=== PATIENT | male | born 1960 | race Caucasian/White ===

== ENCOUNTER 2017-10-10 08:45 | Inpatient (IN) | payer BC ==
[2017-10-10 09:32] VITALS: BMI 26.6
--- NOTE | 2017-10-12 09:54 | HP ---
HISTORY OF PRESENT ILLNESS: The patient is a 56-year-old white male who has had progressive problems with his right knee. He underwent arthroscopic meniscectomy 18 years ago with initial good results. For the past several years he has noticed progressive pain which has persisted despite rest, restri ction of activities, lifestyle adjustments, ibuprofen, Synvisc injections and previous cortisone inje ctions. The pain is now interfering with day-to-day activities including walking, getting dressed, s leeping and working. PAST MEDICAL HISTORY: Please see the old chart. The patient has a history of hepatitis C and has hicks d treatment with resolution of the problem, but has had pancytopenia chronically related to the treat ment and also a component of cirrhosis and hypersplenism. This has been stable without recent change . He also has a history of hypertension. CURRENT MEDICATIONS: Wellbutrin and lisinopril, hydrocodone for pain. PAST SURGICAL HISTORY: He has had a previous low back surgery, previous surgery for nonunion of a le ft patellar fracture. SOCIAL HISTORY: He smokes 10 cigarettes per day. 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 ALLERGIES: He has no allergies. FAMILY HISTORY/SOCIAL HISTORY/REVIEW OF SYSTEMS: Otherwise unremarkable. PHYSICAL EXAMINATION: GENERAL: Reveals a healthy appearing male. HEENT: Unremarkable. NECK: Supple. CHEST: Clear. HEART: Regular rate and rhythm. ABDOMEN: Soft, nontender. RECTAL/GENITAL: Deferred. EXTREMITIES: Pertinent findings related to the right knee. There is moderate effusion. There is mo derate valgus deformity. There is tenderness and crepitus over the lateral joint line. There are he aled arthroscopy puncture sites. Range of motion is 5-125 degrees. There is no instability. Pulses are 1+. There are mild venous stasis changes bilaterally. There is a right antalgic gait. Neurova scular exam is intact. LABORATORY AND X-RAY FINDINGS: X-rays of the right knee reveal bone on bone collapse laterally with progression from previous x-rays. IMPRESSION: 1. Progressive post-traumatic degenerative arthritis, right knee. 2. History of hepatitis C. 3. History of pancytopenia. 4. History of hypertension. PLAN: Right total knee replacement. The nature of the surgery, length of recovery, and potential co mplications such as infection, loss of motion, incomplete relief, delayed wound healing, neurovascula r injury, thromboembolic phenomena, possible transfusion, and need for revision have been discussed i n detail.
[2017-10-16] MEDS ORDERED: CEFAZOLIN/Water 2 GM/20 ML SYRINGE ONE (06:10)
[2017-10-16] MEDS ORDERED: Vancomycin HCl 1.5 GM in Sodium Chloride 0.9% 250 ML 300 ML IVPB SCH ×2 (06:30→18:00)
[2017-10-16] MEDS ORDERED: Fentanyl 100 MCG/2 ML VIAL ONE ×2 (06:36→09:11)
[2017-10-16] MEDS ORDERED: Midazolam HCl 2 mg/2 ml Vial ONE (06:36)
[2017-10-16] MEDS ORDERED: Bupivacaine/Epinephrine 0.25% 30 ML VIAL ONE (06:39)
[2017-10-16 06:49] LABS: Hemoglobin 11.2 g/dL (14.0-18.0); Mean Corpuscular HGB CONC 33.4 g/dL (32.0-36.0); Mean Corpuscular Hemoglobin 28.6 pg (27.0-31.0); Mean Corpuscular Volume 85.7 fl (80.0-94.0); Mean Platelet Volume 8.7 fL (7.4-10.4); Platelet Count 44 thou/uL (130-400); RBC Distribution Width 12.8 % (11.5-14.5); Red Blood Cell (RBC) Count 3.92 mill/uL (4.70-6.10)
[2017-10-16] MEDS ORDERED: Zolpidem Tartrate 5 MG TAB PO PRN ×2 (07:16→09:21)
[2017-10-16] MEDS ORDERED: Ondansetron HCl/PF 4 MG/2 ML Vial IVP PRN ×2 (07:16→09:21)
[2017-10-16] MEDS ORDERED: HYDROcodone/Acetaminophen 5/325 mg Tablet PO PRN (07:16)
[2017-10-16] MEDS ORDERED: Promethazine HCl 25 MG/ML VIAL IM PRN (07:16)
[2017-10-16] MEDS ORDERED: traMADol HCl 50 MG TAB PO PRN ×3 (07:16→09:21)
[2017-10-16] MEDS ORDERED: Thrombin 5000 UNITS/5 ML VIAL ONE (07:37)
[2017-10-16] MEDS ORDERED: Ondansetron HCl/PF 4 MG/2 ML Vial ONE ×2 (08:28→12:28)
[2017-10-16] MEDS ORDERED: Tranexamic Acid 1,000 MG in Sodium Chloride 0.9% 100 ML IVPB SCH ×2 (09:00→09:21)
[2017-10-16] MEDS ORDERED: Promethazine HCl 25 MG/ML VIAL SLOW IVP PRN (09:21)
[2017-10-16] MEDS ORDERED: Fentanyl 100 MCG/2 ML VIAL SLOW IVP PRN ×2 (09:21)
[2017-10-16] MEDS ORDERED: Acetaminophen 325 MG TAB PO PRN (09:21)
[2017-10-16] MEDS ORDERED: diphenhydrAMINE 25 MG CAP PO PRN (09:21)
[2017-10-16] MEDS ORDERED: HYDROcodone/Acetaminophen 10/325 mg Tablet PO PRN ×2 (09:21)
--- NOTE | 2017-10-16 09:28 | RAD ---
TWO VIEWS RIGHT KNEE: Date: 10-16-17 History: Post-operative total knee replacement. Comparison: None available. FINDINGS: There are post-surgical changes related to right total knee replacement. No hardware complication is seen. There is no fracture or dislocation. Subcutaneous emphysema and edema are seen about the right knee related to recent surgery. IMPRESSION: Post-surgical changes related to recent right total knee replacement. POS: [facility]
[2017-10-16] MEDS ORDERED: Hydrochlorothiazide 25 MG TAB PO SCH (10:00)
[2017-10-16] MEDS ORDERED: Lisinopril 20 MG TAB PO SCH (10:00)
--- NOTE | 2017-10-16 10:29 | OP ---
DATE OF PROCEDURE: 10/16/2017 PREOPERATIVE DIAGNOSES: End-stage tricompartmental degenerative osteoarthritis with degenerative gen u valgum, right knee. POSTOPERATIVE DIAGNOSES: End-stage tricompartmental degenerative osteoarthritis with degenerative ge nu valgum, right knee. OPERATIVE PROCEDURE: Cemented cruciate-sparing computer-assisted navigated right total knee arthropl juan. SURGEON: Edilson Martinez M.D. AUTOMATIC PAD MAKING MACHINE OPERATOR: Chicho Garsia PA-C. ANESTHESIA: General via laryngeal mask airway augmented with indwelling femoral block with a single shot sciatic block and local infiltration of Marcaine. COMPONENTS USED: [employer] Triathlon cemented cruciate-sparing primary size 5 femoral comp onent, cemented cruciate-sparing size 6 universal tibial baseplate, 11 mm polyethylene fixed bearing insert, A35 patellar button. TOURNIQUET TIME: 68 minutes at 300 mmHg. ESTIMATED BLOOD LOSS: Less than 100. FINDINGS: End-stage severe degenerative tricompartmental disease, bone on bone arthrosis, periarticu lar osteophyte formation, large serous effusion, hypertrophic synovium. DRAINS: None. SPECIMENS: None. COMPLICATIONS: None. COUNTS: Correct. INDICATIONS FOR SURGERY: Andrew is a 56-year-old white male who has had progressive right knee pain an d has gotten worse for the last 5-7 years. He has failed conservative management and elected to proc eed with total knee arthroplasty for treatment of his pain. PROCEDURE IN DETAIL: After informed consent was obtained in the preoperative holding area. The jany ent was taken to the operative suite where general anesthesia was induced. Once adequate level of ge neral anesthesia was obtained, the patient was positioned and a well-padded tourniquet was placed juhi und the right proximal thigh. The right lower extremity was then prepped and draped in the usual raul rile fashion. Prior to exsanguination, a time out was called and all members of the surgical team ag marisol upon site, surgeon, and patient. The extremity was then exsanguinated and the tourniquet was ra ised. A midline longitudinal incision was then made directly over the patella extending two fingerbr eadths above the superior pole of the patella and two fingerbreadths inferior to the inferior patella r pole of the patella. Deeper subcutaneous layers were dissected sharply and local bleeding was cont rolled with Bovie electrocautery. A quad tendon longitudinal split was then made sharply and a media n parapatellar arthrotomy was carried out both sharp and with Bovie electrocautery, carried down to o ne fingerbreadth medial to the tibial tubercle. The knee was then placed into flexion and the patell a was everted nicely, and a copious fat pad ectomy was performed allowing for greater exposure of the tibia. The computer-assisted distal femoral fiducial was then placed and pinned firmly, and the dis alma femoral cutting guide was pinned firmly into place. The oscillating saw was then used to remove the appropriate amount of bone. The 4-in-1 cutting block was then placed on the distal femur and the oscillating saw was used to remove the appropriate amount of bone off of the anterior, posterior, an d chamfer cuts. After completion of bone cuts, the anterior cruciate ligament was resected sharply a nd the posterior cruciate ligament retractor was placed and the tibia was subluxed for better exposur e. Partial meniscectomies were carried out, and the tibial computer-assisted fiducial was pinned, an d the cutting guide was placed. Oscillating saw was then used to remove the bone with Hohmann retrac tors used to take care and protect the collateral ligaments. After the tibial resection was performe d, a laminar poultry dressing worker was placed in between the freshened bone cuts. The knee placed at 90 degrees a nd further bilateral meniscectomies were carried out, and the curved osteotome and curettage was used to remove any excess bone spurs in the posterior compartment. The trial femoral component, tibial b aseplate were placed with the appropriate polyethylene trial insert with an appropriate polyethylene spacer and patellar button. The knee was taken through full range of motion with flexion and extensi on from 0-90 degrees and patellar broach squarely in the trochlea without any squinting or subluxatio n noted. The knee was also stable to varus and valgus stressing at 0, 15, 45, and 90 degrees of flex ion. The drawer was negative. All trial components were then removed and the keel punch was used to provide the appropriate defect in the tibia with a mallet. The freshened bone cuts were copiously ir rigated with pulsatile lavage of about 1-1/2 liters to remove all excess debris. The freshened bone cuts were then dried and with suction and lap sponge. The knee was placed in flexion and retractors were placed to provide access to all bone cuts. Tobramycin impregnated methyl methacrylate cement wa s then placed on the freshened bone cuts and implants which were malleted firmly into place. Curetta ge and [place] elevators were used to remove any excess bone cement. The knee was placed into full ext ension and the patellar button was placed under compression, and the cement was allowed to cure. Onc e completed, the components were again taken through full range of motion and copious irrigation of t he knee was carried out with another liter of normal saline. All components were inspected fully wit h full range of motion and varus and valgus stressing. There was no laxity noted and full extension w as observed clinically. Primary closure was accomplished with #2 interrupted Vicryl stitch of the ar throtomy defect. This was oversewn with a #2 running Quill barbed stitch. The subcutaneous layer wa s then closed with a running 0 barbed Monocryl stitch and skin closure accomplished with a running viramontes bcuticular 3-0 Monocryl barbed Quill stitch and augmented with cement on the skin. Tourniquet was lo wered. Good spontaneous return of distal pulses was noted clinically and a sterile dressing was appl ied to the incision. The procedure was terminated without any complications. The patient was awaken ed in the operative suite and taken to the recovery room in stable condition.
[2017-10-16] MEDS ORDERED: Ropivacaine 0.2% HCl/PF (40 MG/20 ML VIAL) ONE (11:43)
[2017-10-16] MEDS ORDERED: Ropivacaine 0.5% HCl/PF (150 MG/30 ML VIAL) ONE (11:43)
[2017-10-16] MEDS: Lisinopril 20 MG TAB PO SCH (11:50)
[2017-10-16] MEDS: HYDROcodone/Acetaminophen 5/325 mg Tablet PO PRN ×3 (11:51→21:50)
[2017-10-16] MEDS: Sodium Chloride 0.9% 1,000 ML IV SCH ×2 (12:00→20:07)
[2017-10-16] MEDS ORDERED: Dexamethasone 20 MG/5 ML VIAL ONE (12:28)
[2017-10-16] MEDS ORDERED: PROPOFOL 200 MG/20 ML VIAL ONE (12:28)
[2017-10-16] MEDS: CEFAZOLIN/Water 2 GM/20 ML SYRINGE SLOW IVP SCH ×2 (13:46→21:05)
[2017-10-16] MEDS ORDERED: hydrALAZINE 20 MG/ML VIAL SLOW IVP PRN (17:50)
[2017-10-16] MEDS: Bupivacaine 0.5% 50 ML in Sodium Chloride 0.9% 50 ML NERVE BLCK SCH (21:51)
[2017-10-16] MEDS: Fentanyl 100 MCG/2 ML VIAL IV PRN (23:39)
--- NOTE | 2017-10-17 01:26 | CON ---
DATE OF CONSULTATION: 10/16/2017 PRIMARY CARE PHYSICIAN: Gloria Bardales DO ATTENDING PHYSICIAN: Edilson Martinez MD REASON FOR CONSULT: Aid in medical management. HISTORY OF PRESENT ILLNESS: Mr. Davidson is a pleasant 56-year-old gentleman who has had progressive naz n in his right knee. He has failed conservative measures and was admitted for an elective right tota l knee replacement. Currently, the patient is postop, he is experiencing some significant pain which limits the history taking. He states other than the pain in his knee, he has no other significant c omplaints. He has had blood pressure for many years and he says it typically runs fairly well, howev er, it is usually a little bit on the high side. He was recently taken off atenolol due to some type of side effect. He also has a history of hepatitis C and cirrhosis. He said he did complete a cour se of treatment for hepatitis C and says that he was cured of this and this was back in 2014. He oth erwise denies any chest pain or shortness of breath, no PND, no orthopnea, no nausea, no vomiting, et c. PAST MEDICAL HISTORY: Significant for hepatitis C, cirrhosis, hypersplenism, and hypertension. PAST SURGICAL HISTORY: He has had a patellectomy in the left knee and umbilical hernia surgery and o rbital fracture reduction. ALLERGIES: No known drug allergies. SOCIAL HISTORY: He is . He has one adopted son. He smokes about 10 cigarettes a day and he rarely drinks. FAMILY HISTORY: Significant for father had lung cancer. CURRENT MEDICATIONS: Ibuprofen 600 mg t.i.d., [place] 5/325 q.6 hours as needed, lisinopril 40 mg ivett y, and hydrochlorothiazide 25 mg daily. PHYSICAL EXAMINATION: GENERAL: He is alert and oriented. He is in some distress due to pain. VITAL SIGNS: Blood pressure was 149/91, heart rate 68, respiratory rate is 16, temperature is 97.4. HEENT: His pupils are equal, round, and reactive. Extraocular muscles are intact. Sclerae are anic teric. Throat, no erythema, no exudates. NECK: No adenopathy, no bruits. LUNGS: Clear to auscultation. There was no wheezing or rales. CARDIOVASCULAR: He had a normal S1, S2. I do not appreciate an S3 or S4. No murmurs, clicks, or ru bs. ABDOMEN: Soft, nontender, nondistended. Positive for bowel sounds. No rebound or guarding. EXTREMITIES: There is no edema. NEUROLOGIC: He is moving all extremities. It is grossly nonfocal. LABORATORY DATA: White blood cell count is 2.0, hemoglobin 11.2, hematocrit is 33.6, platelet count was 44,000. ASSESSMENT AND PLAN: This is a pleasant 56-year-old gentleman who is being admitted for an elective right total knee replacement. With regard to hypertension, we agree with restarting hydrochlorothiaz karely as well as the lisinopril and we will add hydralazine as needed for additional blood pressure con trol. History of hepatitis C and cirrhosis. The hepatitis C has been successfully treated. However , he still has some evidence of hypersplenism. However, it does appear to be actually improved from previous admissions in reviewing his lab work from as far back as 2011. His white blood cell count i s actually the highest, it has been accepted for one time in 2015 and his platelet count of 44,000 is actually better than what it has been in the past. We will monitor this carefully during his hospit al stay and watch for any signs of difficulty with hemostasis. However, with a platelet count above 20,000, he should be able to maintain adequate hemostasis. Otherwise, we will follow along with you. Thank you for allowing us to participate in the care of this very nice gentleman.
[2017-10-17] MEDS: HYDROcodone/Acetaminophen 5/325 mg Tablet PO PRN ×2 (02:09→06:11)
[2017-10-17] MEDS: Fentanyl 100 MCG/2 ML VIAL IV PRN ×4 (03:53→21:05)
[2017-10-17] MEDS: Sodium Chloride 0.9% 1,000 ML IV SCH ×2 (04:30→18:51)
[2017-10-17 06:01] LABS: Hemoglobin 12.2 g/dL (14.0-18.0); Mean Corpuscular HGB CONC 34.6 g/dL (32.0-36.0); Mean Corpuscular Hemoglobin 29.9 pg (27.0-31.0); Mean Corpuscular Volume 86.5 fl (80.0-94.0); Mean Platelet Volume 9.6 fL (7.4-10.4); Platelet Count 55 thou/uL (130-400); RBC Distribution Width 12.9 % (11.5-14.5); Red Blood Cell (RBC) Count 4.08 mill/uL (4.70-6.10); White Blood Cell (WBC) Count 6.7 thou/uL (4.8-10.8)
[2017-10-17] MEDS: Lisinopril 20 MG TAB PO SCH (08:52)
[2017-10-17] MEDS: Multivitamin W/ Minerals 1 TAB PO SCH (08:52)
[2017-10-17] MEDS: Senokot S 8.6-50 MG TAB PO SCH ×2 (08:52→21:06)
[2017-10-17] MEDS: Hydrochlorothiazide 25 MG TAB PO SCH (08:52)
[2017-10-17] MEDS: Ferrous Gluconate 324 MG TAB PO SCH ×2 (08:53→18:52)
[2017-10-17] MEDS ORDERED: Fentanyl 100 MCG/2 ML VIAL SLOW IVP SCH (10:15)
[2017-10-17] MEDS ORDERED: HYDROcodone/Acetaminophen 10/325 mg Tablet PO PRN (10:16)
[2017-10-17] MEDS: HYDROcodone/Acetaminophen 10/325 mg Tablet PO PRN ×4 (10:57→23:20)
[2017-10-17] MEDS: Bupivacaine 0.5% 50 ML in Sodium Chloride 0.9% 50 ML NERVE BLCK SCH ×2 (12:45→23:04)
--- NOTE | 2017-10-17 14:06 | PDOC.PN ---
- Subjective Encounter Start Date: 10/17/17 Encounter Start Time: 12:30 Mr. Davidson was seen today in follow-up of HTN and Post knee replacement. He says the pain in his knee has just now been controlled. He says he was in pain all night and this morning. - Objective MAR Reviewed: Yes Vital Signs & Weight: Vital Signs (12 hours) Temp Pulse Pulse Pulse Resp BP BP 10/17/17 11:40 97.8 F 70 16 10/17/17 08:52 148/90 H 10/17/17 08:30 76 80 169/110 H 10/17/17 08:00 98.6 F 79 16 10/17/17 07:55 98.6 F 79 16 10/17/17 07:11 98.1 F 72 18 10/17/17 03:54 71 200/102 H 10/17/17 03:15 98.1 F 74 16 BP BP Pulse Ox 10/17/17 11:40 161/101 H 97 10/17/17 08:52 10/17/17 08:30 148/95 H 10/17/17 08:00 99 10/17/17 07:55 169/110 H 99 10/17/17 07:11 166/96 H 96 10/17/17 03:54 10/17/17 03:15 200/102 H 96 Weight Admit Weight 180 lb Weight 180 lb I&O: 10/16/17 10/17/17 10/18/17 06:59 06:59 06:59 Intake Total 4578.5 1 Output Total 2800 Balance 1778.5 1 Result Diagrams: 10/17/17 03:12 Phys Exam - Physical Examination HEENT: PERRLA Respiratory: no wheezing, no rales, no rhonchi, clear to auscultation bilateral Cardiovascular: RRR, no significant murmur, no rub Gastrointestinal: soft, non-tender, no distention, positive bowel sounds Musculoskeletal: no edema Dx/Plan (1) Hypertension Code(s): I10 - ESSENTIAL (PRIMARY) HYPERTENSION Status: Chronic (2) Cirrhosis of liver Code(s): K74.60 - UNSPECIFIED CIRRHOSIS OF LIVER Status: Chronic (3) Hypersplenism Code(s): D73.1 - HYPERSPLENISM Status: Chronic (4) Status post total right knee replacement Code(s): Z96.651 - PRESENCE OF RIGHT ARTIFICIAL KNEE JOINT Status: Acute - Plan * HTN- blood pressure is elevated, but I suspect this is due to pain- will continue with his home medications, and PRN medications * Hyperplenism- his platelet count is better today, will continue to monitor * Continue symptom rlief, and PTOT .
[2017-10-18] MEDS: Fentanyl 100 MCG/2 ML VIAL IV PRN (02:34)
[2017-10-18] MEDS: Sodium Chloride 0.9% 1,000 ML IV SCH (04:06)
[2017-10-18] MEDS: HYDROcodone/Acetaminophen 10/325 mg Tablet PO PRN ×2 (04:46→08:59)
[2017-10-18 08:25] VITALS: BP 162/104; TEMP 98.6
[2017-10-18] MEDS: Ferrous Gluconate 324 MG TAB PO SCH (08:57)
[2017-10-18] MEDS: Senokot S 8.6-50 MG TAB PO SCH (08:57)
[2017-10-18] MEDS: Hydrochlorothiazide 25 MG TAB PO SCH (08:57)
[2017-10-18] MEDS: Lisinopril 20 MG TAB PO SCH (08:57)
[2017-10-18] MEDS: Multivitamin W/ Minerals 1 TAB PO SCH (08:57)
--- NOTE | 2017-10-18 15:02 | DIS ---
DATE OF ADMISSION: 10/16/2017 DATE OF DISCHARGE: 10/18/2017 PRIMARY CARE PROVIDER: Gloria Bardales D.O. ADMITTING PHYSICIAN: Edilson Martinez M.D. DISCHARGE DIAGNOSES: Status post cemented cruciate-sparing computer-assisted navigated right total k nee arthroplasty on 10/16/2017, hepatitis C, cirrhosis, hypersplenism, and hypertension. ALLERGIES: None. DISCHARGE MEDICATIONS: Lisinopril 40 mg a day, [place] 10/325 one to two every 6 hours as needed for p ain, and hydrochlorothiazide 25 mg a day. CODE STATUS: FULL. HOSPITAL COURSE: The patient admitted to the hospital by Dr. Edilson Martinez, underwent surgery. Padmini tinajero consulted for medical management. The patient did well during his hospital stay and was discharge d on 10/18/2017. FOLLOWUP: Per Dr. Martinez.
== END 2017-10-18 12:36 | disposition home or self-care (01) | DRG 470 ==
LOC: SJJU 10-16 05:44
PROVIDERS: ADMIT Orthopaedic Surgery; ATTEND Orthopaedic Surgery
PROC: 0SRC0J9 Replacement of Right Knee Joint with Synthetic Substitute, Cemented, Open Approach (ICD-10-PCS; principal; 2017-10-16)
DX: M17.31 Unilateral post-traumatic osteoarthritis, right knee (principal); I10 Essential (primary) hypertension; Z79.899 Other long term (current) drug therapy; Z79.891 Long term (current) use of opiate analgesic; F17.210 Nicotine dependence, cigarettes, uncomplicated; K74.60 Unspecified cirrhosis of liver
CPT/HCPCS: 36415; 85027; A4216; C1713; C1776; G8978-GP-CM; G8979-GP-CJ; J0360; J1100; J2250; J2405; J2704; J2795; J3010; J3370; J3490; J7050

== ENCOUNTER 2017-10-10 09:26 | Outpatient (CLI) | payer BC ==
[2017-10-10 14:13] LABS: Bilirubin Small (Negative); Blood, Urine Negative (Negative); Clarity CLEAR (Clear); Glucose, Urine (Dipstick) Negative (Negative); Leukocyte Trace (Negative); Nitrite Negative (Negative); Protein, Urine (Dipstick) Negative (Neg-Trace); Specific Gravity, Urine 1.034 (1.002-1.036)
[2017-10-10 14:16] LABS: INR-International Normal Ratio 1.2; Prothrombin Time 15.4 SEC (12.0-14.7)
[2017-10-10 14:19] LABS: Bacteria/HPF None Seen HPF (None Seen); Hyaline Casts/LPF 7-10 HYALINE CAST LPF (0-3 Hyaline); Pathc Cast-AUWi Flag 0.58 (0-2.49); Squamous Epithelial 0-3 HPF (0-3)
[2017-10-10 14:30] LABS: Anion Gap 12 mmol/L (10-20); BUN (Urea Nitrogen) 21 mg/dL (8.4-25.7); Calc. Creatinine Clearance 0 mL/min (70-130); Calcium 9.2 mg/dL (7.8-10.44); Carbon Dioxide 27 mmol/L (22-29); Chloride 107 mmol/L (98-107); Estimated GFR-MDRD Greater than 90; Glucose 74 mg/dL (70-105); Potassium 3.5 mmol/L (3.5-5.1); Sodium 142 mmol/L (136-145)
[2017-10-10 15:00] LABS: #Lymphocytes 0.4 thou/uL (1.20-3.40); #Monocytes 0.1 thou/uL (0.11-0.59); #Neutrophils 1.3 thou/uL (1.40-6.50); %Basophils 0.8 % (0.0-1.0); %Eosinophils 2.3 % (0.0-10.0); %Lymphocytes 22.3 % (21.0-51.0); %Monocytes 5.7 % (0.0-10.0); %Neutrophils 68.9 % (42.0-75.0); Mean Corpuscular HGB CONC 32.9 g/dL (32.0-36.0); Mean Corpuscular Hemoglobin 28.8 pg (27.0-31.0); Mean Corpuscular Volume 87.7 fl (80.0-94.0); Mean Platelet Volume 9.4 fL (7.4-10.4); PLT Morphology Comment Appears Decreased; Platelet Count 49 thou/uL (130-400); Red Blood Cell (RBC) Count 4.16 mill/uL (4.70-6.10); White Blood Cell (WBC) Count 1.8 thou/uL (4.8-10.8)
--- NOTE | 2017-10-10 16:42 | EKG ---
Test Reason : Blood Pressure : / mmHG Vent. Rate : 073 BPM Atrial Rate : 073 BPM P-R Int : 152 ms QRS Dur : 098 ms QT Int : 420 ms P-R-T Axes : 009 -12 016 degrees QTc Int : 462 ms Normal sinus rhythm Normal ECG When compared with ECG of 15-MAY-2015 14:22, Abberant conduction is no longer Present Confirmed by DR. Eusebia ANDERSON ([id number]) on 10/10/2017 4:41:33 PM Referred By: ROCHELLE Confirmed By:DR. Eusebia ANDERSON
== END 2017-10-10 09:27 | disposition home or self-care (01) ==
LOC: LABBT 09:26
PROVIDERS: ATTEND Orthopaedic Surgery
DX: Z01.818 Encounter for other preprocedural examination (principal); M17.31 Unilateral post-traumatic osteoarthritis, right knee
CPT/HCPCS: 80048; 81001; 85025; 85610; 87081; 93005; 93010

== ENCOUNTER 2017-10-13 16:36 | Outpatient (CLI) | payer BC | END 2017-10-13 16:37 | disposition home or self-care (01) | LOC: LABBT 16:36 | PROVIDERS: ATTEND Orthopaedic Surgery | DX: Z01.812 Encounter for preprocedural laboratory examination (principal); M17.31 Unilateral post-traumatic osteoarthritis, right knee | CPT/HCPCS: 86850; 86870; 86900; 86901; 86922 ==

== ENCOUNTER 2017-12-29 12:36 | Emergency (ER) | payer BC ==
--- NOTE | 2017-12-29 13:32 | ULT ---
RIGHT LOWER EXTREMITY VENOUS DOPPLER: History: Right leg pain. Comparison: None. Technique: Real-time grayscale, color doppler, and spectral analysis of the right lower extremity sergio ous system was performed. The common femoral, femoral, proximal portions of the greater saphenous and deep femoral veins as well as the popliteal and posterior tibial veins were interrogated. FINDINGS: Normal flow, augmentation, and compression. No deep venous thrombosis. Low grade soft tissue edema. IMPRESSION: No evidence of deep venous thrombosis. POS: [facility]
== END 2017-12-29 14:26 | disposition home or self-care (01) ==
LOC: SCSER 12:36
DX: T84.89XA Other specified complication of internal orthopedic prosthetic devices, implants and grafts, initial encounter (principal); M79.89 Other specified soft tissue disorders; I10 Essential (primary) hypertension; F41.9 Anxiety disorder, unspecified; F17.210 Nicotine dependence, cigarettes, uncomplicated

== ENCOUNTER 2018-09-10 08:14 | Outpatient (CLI) | payer BC ==
--- NOTE | 2018-09-10 10:01 | HP ---
HISTORY OF PRESENT ILLNESS: Mr. Andrew Davidson is a very pleasant 57-year-old gentleman, who presents to the [facility] for evaluation of venous ulcerations of the right and left lower legs. The patient has one ulceration over the right medial lower leg and one ulceration over the left medial lower leg. The patient states that the ulcerations have been present since the beginning of July of this year. He states that he treated the ulcerations with a silver-based ointment, which he purchased from [employer]. He states that he used Band-Aids for dressing the wounds in conjunction with the silver-based ointment, because of adherence of gauze to the wound bed. He states that the wounds have improved in their appearance since he was prescribed Bactrim by Dr. Foreman. The patient was referred to the Wound Center by Dr. Foreman on 08/23/2018. PAST MEDICAL HISTORY: 1. Hypertension. 2. History of hepatitis C. 3. Cirrhosis. 4. Arthritis. PAST SURGICAL HISTORY: 1. Right knee arthroscopy. 2. Umbilical hernia repair. 3. Lumbar laminectomy. 4. Left orbital fracture with repair. 5. Partial patellectomy of left knee with quadriceps repair. 6. Right total knee arthroplasty. MEDICATIONS: 1. Lisinopril. 2. Hydrochlorothiazide. 3. Xanax. 4. Ibuprofen. 5. Zyrtec. ALLERGIES: NO KNOWN DIAGNOSED ALLERGIES. SOCIAL HISTORY: Social history significant for tobacco use of up to one pack of cigarettes per day for 22 years. The patient states that he stopped smoking at the beginning of July of this year. The patient admits to heavy consumption of alcohol in the past. He states that for the past 7 to 8 years, however, he has only consumed 2 drinks per month. He states that he has consumed alcohol for a total of 40 years. FAMILY HISTORY: Negative for diabetes mellitus or coronary artery disease. PHYSICAL EXAMINATION: VITAL SIGNS: Temperature 97.5, pulse 87, respirations 18, blood pressure 146/81. GENERAL: A 57-year-old gentleman, lying on table in examination room, in no acute distress. HEENT: Normocephalic, atraumatic. NECK: No nuchal rigidity. CHEST: Clear to auscultation. CV: Regular rate and rhythm. ABDOMEN: Soft. EXTREMITIES: An ulceration is present over the right medial lower leg, which measures approximately 1.4 x 1.8 cm. An ulceration is present over the left medial lower leg, which measures approximately 0.4 x 0.3 cm. Granulation tissue is present within the margins of each wound. Necrotic and nonviable tissue present within the margins of the larger ulceration was debrided with an excisional full-thickness debridement with the use of a curette. No purulent drainage is associated with either wound. No erythema of the skin surrounding either wound is present. No maceration of the skin of the periwound of either wound is noted. Dorsalis pedis pulse and posterior tibial pulse are palpable on the right and on the left. No significant edema of the right or left lower extremities present on exam today. Discoloration of the skin of the right and left lower legs is present secondary to hemosiderin deposition. NEUROLOGIC: Grossly nonfocal. ASSESSMENT AND PLAN: 1. Chronic venous hypertension with ulcers, Medihoney, foam, followed by the 3M Coban 2 Layer Compression System will be applied to the ulceration of the right medial lower leg. Medihoney followed by Allevyn will be applied to the ulceration of the left medial lower leg. The patient is to perform his own dressing changes for the ulceration of the left lower leg. The patient is to leave the dressings applied in clinic today for the right lower leg ulceration intact until his followup visit in 1 week. No antibiotics will be prescribed today based upon the appearance of the wounds. The patient agrees to return to clinic in 1 week. 2. Hypertension. 3. History of hepatitis C. 4. Cirrhosis. 5. Arthritis. Job ID: [id number]
[2018-09-10] MEDS ORDERED: Sodium Chloride 0.9% 15 ML NEB ONE (18:00)
[2018-09-10] MEDS ORDERED: Lidocaine 2% 11 ML SYR ONE (18:00)
== END 2018-09-10 08:15 | disposition home or self-care (01) ==
LOC: WCC 08:14
PROVIDERS: ATTEND Family Medicine
DX: I87.313 Chronic venous hypertension (idiopathic) with ulcer of bilateral lower extremity (principal); L97.929 Non-pressure chronic ulcer of unspecified part of left lower leg with unspecified severity; L97.919 Non-pressure chronic ulcer of unspecified part of right lower leg with unspecified severity; M19.90 Unspecified osteoarthritis, unspecified site; K74.60 Unspecified cirrhosis of liver; Z86.19 Personal history of other infectious and parasitic diseases
CPT/HCPCS: A4218

== ENCOUNTER 2018-09-17 09:11 | Outpatient (CLI) | payer BC ==
--- NOTE | 2018-09-17 10:25 | PRG ---
DATE OF SERVICE: 09/17/2018 HISTORY OF PRESENT ILLNESS: Mr. Andrew Davidson is a very pleasant 57-year-old gentleman, who presents to the Wound Center for evaluation of venous ulcerations of the right and left lower legs. The patient has one ulceration over the right medial lower leg and one ulceration over the left medial lower leg. The patient previously stated that the ulcerations had been present since the beginning of July of this year. He stated that he treated the ulcerations with the silver based ointment, which he purchased from [employer]. He stated that he used Band-Aids for dressing the wounds in conjunction with the silver-based ointment, because of adherence of gauze to the wound bed. He stated that the wounds improved in their appearance after he was prescribed Bactrim by Dr. Foreman. The patient was referred to the Wound Center by Dr. Foreman on 08/23/2018. After being seen in the Wound Center, the ulceration of the right medial lower leg was dressed with Medihoney, foam, and 3M Coban 2 Layer Compression System. PHYSICAL EXAMINATION: VITAL SIGNS: Temperature 97.5, pulse 47, respirations 16, blood pressure 166/80. EXTREMITIES: An ulceration is present over the right medial lower leg, which measures approximately 1.8 x 1.4 cm. The dimensions of the wound at the time of the patient's last visit were also approximately 1.8 x 1.4 cm. Granulation tissue is present within the margins of the wound. Necrotic and nonviable tissue present within the wound margins were debrided with an excisional full-thickness debridement with the use of a curette. No purulent drainage is associated with the wound. No erythema of the skin surrounding the wound is present. No maceration of the skin of the periwound is noted. No significant edema of the right foot or lower leg is present on exam today. An ulceration of the left medial lower leg is present, which measures approximately 0.4 x 0.7 cm. No purulent drainage is associated with the wound. No erythema of the skin surrounding the wound is present. No maceration of the skin of the periwound is noted. No significant edema of the left foot or lower leg is present on today's exam. Discoloration of the skin of the right and left lower legs is present secondary to hemosiderin deposition. ASSESSMENT AND PLAN: 1. Chronic venous hypertension with ulcers. Medihoney, 4x4s, [place], and the 3M Coban 2 Layer Compression System will be applied to the ulceration of the right lower leg. Medihoney followed by Keith will be applied to the ulceration of the left medial lower leg. The patient is to perform his own dressing changes for the ulceration of the left lower leg. He is also to utilize a compression garment in conjunction with the dressing changes. The patient is to leave the dressings applied in clinic today for the right lower leg ulceration intact until his followup visit in 1 week. 2. Hypertension. 3. History of hepatitis C. 4. Cirrhosis. 5. Arthritis. Job ID: [id number]
[2018-09-17] MEDS ORDERED: Lidocaine 2% 11 ML SYR ONE (18:00)
[2018-09-17] MEDS ORDERED: Sodium Chloride 0.9% 15 ML NEB ONE (18:00)
== END 2018-09-17 09:12 | disposition home or self-care (01) ==
LOC: WCC 09:11
PROVIDERS: ATTEND Family Medicine
DX: I87.313 Chronic venous hypertension (idiopathic) with ulcer of bilateral lower extremity (principal); L97.929 Non-pressure chronic ulcer of unspecified part of left lower leg with unspecified severity; L97.919 Non-pressure chronic ulcer of unspecified part of right lower leg with unspecified severity; I10 Essential (primary) hypertension; K74.60 Unspecified cirrhosis of liver; M19.90 Unspecified osteoarthritis, unspecified site; Z86.19 Personal history of other infectious and parasitic diseases
CPT/HCPCS: 11042; A4218

== ENCOUNTER 2018-09-24 09:23 | Outpatient (CLI) | payer BC ==
--- NOTE | 2018-09-24 10:29 | PRG ---
DATE OF SERVICE: 09/24/2018 HISTORY: Mr. Andrew Davidson is a very pleasant 57-year-old gentleman, who presents to the [facility]ound Center for evaluation of venous ulcerations of the right and left lower legs. The patient has 1 ulceration over the right medial lower leg and 1 ulceration over the left medial lower leg. Previously, the patient stated that the ulcerations have been present since the beginning of July of this year. He stated that he treated the ulcerations with a silver based ointment, which he purchased from [employer]. He stated that he used Band-Aids for dressing the wounds in conjunction with the silver-based ointment, because of adherence of gauze to the wound bed. He stated that the wounds improved in their appearance after he was prescribed Bactrim by Dr. Foreman. The patient was referred to the Wound Center by Dr. Foreman on 08/23/2018. After being seen in the Wound Center, the ulceration of the right medial lower leg was dressed with Medihoney foam and 3M Coban 2 Layer Compression System. OBJECTIVE: VITAL SIGNS: Temperature 97.7, pulse 74, respirations 16, and blood pressure 161/95. EXTREMITIES: An ulceration is present over the right medial lower leg, which measures approximately 1.5 x 2.0 cm. Granulation tissue is present within the wound margins. Necrotic and nonviable tissue present within the wound margins was debrided with an excisional full-thickness debridement. No purulent drainage is associated with the wound. No erythema of the skin surrounding the wound is present. No maceration of the skin of the periwound is noted. A dorsalis pedis pulse is palpable on the right. No significant edema of the right foot or lower leg is present on exam today. An ulceration of the left medial lower leg is present, which measures approximately 0.4 x 0.8 cm. No purulent drainage is associated with the wound. No erythema of the skin surrounding the wound is present. No maceration of the skin of the periwound is noted. No significant edema of the left foot or lower leg is present on exam today. Discoloration of the skin of the right and left lower legs is present secondary to hemosiderin deposition. ASSESSMENT AND PLAN: 1. Chronic venous hypertension with ulcers. Medihoney, 4x4s, Webril, and the 3M Coban 2 Layer Compression System will be applied to the ulceration of the right lower leg. Medihoney followed by Keith will be applied to the ulceration of the left medial lower leg. The patient will continue to perform his own dressing changes for the ulceration of the left lower leg. He is also to utilize a compression garment in conjunction with the dressing changes. The patient has been reminded to leave the dressings applied in clinic today for the right lower leg ulceration intact until his followup visit one week from today. 2. Hypertension. 3. History of hepatitis C. 4. Cirrhosis. 5. Arthritis. Job ID: [id number]
[2018-09-24] MEDS ORDERED: Lidocaine 2% 11 ML SYR ONE (21:45)
[2018-09-24] MEDS ORDERED: Sodium Chloride 0.9% 15 ML NEB ONE (21:45)
== END 2018-09-24 09:24 | disposition home or self-care (01) ==
LOC: WCC 09:23
PROVIDERS: ATTEND Family Medicine
DX: I87.313 Chronic venous hypertension (idiopathic) with ulcer of bilateral lower extremity (principal); L97.929 Non-pressure chronic ulcer of unspecified part of left lower leg with unspecified severity; L97.919 Non-pressure chronic ulcer of unspecified part of right lower leg with unspecified severity; I10 Essential (primary) hypertension; K74.60 Unspecified cirrhosis of liver; M19.90 Unspecified osteoarthritis, unspecified site; Z86.19 Personal history of other infectious and parasitic diseases
CPT/HCPCS: 11042; A4218

== ENCOUNTER 2018-10-04 08:53 | Outpatient (CLI) | payer BC ==
--- NOTE | 2018-10-04 10:06 | PRG ---
DATE OF SERVICE: 10/04/2018 HISTORY: Mr. Andrew Davidson is a very pleasant 57-year-old gentleman, who presents to the Wound Center for evaluation of venous ulcerations of the right and left lower legs. The patient has an ulceration over the right medial lower leg and an ulceration over the left medial lower leg. The patient previously stated that the ulcerations have been present since the beginning of July of this year. He stated that he treated the ulcerations with a silver-based ointment, which he purchased from [employer]. He stated that he used Band-Aids for dressing the wounds in conjunction with the silver-based ointment, because of adherence of gauze to the wound bed. He stated that the wounds improved in their appearance after he was prescribed Bactrim by Dr. Foreman. The patient was referred to the Wound Center by Dr. Foreman on 08/23/2018. After being seen in the Wound Center, the ulceration of the right medial lower leg was dressed with Medihoney, foam and 3M Coban 2 Layer Compression System. PHYSICAL EXAMINATION: VITAL SIGNS: Temperature 97.8, pulse 88, respirations 20, blood pressure 173/105. EXTREMITIES: An ulceration is present over the right medial lower leg, which measures approximately 2.5 x 2.7 cm. Granulation tissue is present within the wound margins. Necrotic and nonviable tissue present within the wound margins was debrided with an excisional full-thickness debridement. No purulent drainage is associated with the wound. No erythema of the skin surrounding the wound is present. No maceration of the skin of the periwound is noted. A dorsalis pedis pulse is palpable on the right. No significant edema of the right foot or lower leg is present on exam today. An ulceration of the left medial lower leg is present, which measures approximately 0.7 x 0.8 cm. No purulent drainage is associated with the wound. No erythema of the skin surrounding the wound is present. No maceration of the skin of the periwound is noted. No significant edema of the left foot or lower leg is present. On exam today, discoloration of the skin of the right and left lower legs is present secondary to hemosiderin deposition. ASSESSMENT AND PLAN: 1. Chronic venous hypertension with ulcers. Dressing changes of SilvaSorb gel sheet will be initiated today. These dressing changes are to be performed on a daily basis after cleansing and irrigation. The patient will be performing his own dressing changes. I will see Mr. Davidson again in 1 week. At this time, consideration will be given to treatment with a skin substitute. The patient is to utilize his compression garments in conjunction with the preceding dressing changes. 2. Hypertension. 3. History of hepatitis C. 4. Cirrhosis. 5. Arthritis. Job ID: [id number]
[2018-10-04] MEDS ORDERED: Sodium Chloride 0.9% 15 ML NEB ONE (16:22)
== END 2018-10-04 08:54 | disposition home or self-care (01) ==
LOC: WCC 08:53
PROVIDERS: ATTEND Family Medicine
DX: I87.313 Chronic venous hypertension (idiopathic) with ulcer of bilateral lower extremity (principal); L97.929 Non-pressure chronic ulcer of unspecified part of left lower leg with unspecified severity; L97.919 Non-pressure chronic ulcer of unspecified part of right lower leg with unspecified severity; I10 Essential (primary) hypertension; M19.90 Unspecified osteoarthritis, unspecified site; K74.60 Unspecified cirrhosis of liver; Z86.19 Personal history of other infectious and parasitic diseases
CPT/HCPCS: A4218

== ENCOUNTER 2018-10-11 08:35 | Outpatient (CLI) | payer BC ==
--- NOTE | 2018-10-11 09:45 | PRG ---
DATE OF SERVICE: 10/11/2018 HISTORY: Mr. Andrew Davidson is a very pleasant 57-year-old gentleman, who presents to the Wound Center for evaluation of venous ulcerations of the right and left lower legs. The patient has an ulceration over the right medial lower leg and an ulceration over the left medial lower leg. Previously, the patient stated that the ulcerations have been present since the beginning of July of this year. He stated that he treated the ulcerations with the silver-based ointment, which he purchased from [employer]. He stated that he used Band-Aids for dressing the wounds in conjunction with the silver-based ointment, because of adherence of gauze to the wound bed. He stated that the wound improved in their appearance after he was prescribed Bactrim by Dr. Foreman. The patient was referred to the Wound Center by Dr. Foreman on 08/23/2018, after being seen in the Wound Center. The ulceration of the right medial lower leg was dressed with Medihoney, foam, and the 3M Coban 2 Layer Compression System. Since the patient's last visit, Mr. Davidson has been performing dressing changes of SilvaSorb gel sheet for his ulcerations with a marked worsening in the appearance of the ulceration over the right medial lower leg. PHYSICAL EXAMINATION: VITAL SIGNS: Temperature 98.0, pulse 84, respirations 16, blood pressure 180/109. EXTREMITIES: An ulceration is present over the right medial lower leg, which measures approximately 2.7 x 2.3 cm. Granulation tissue is present within the wound margins. No purulent drainage is associated with the wound. Erythema of the skin surrounding the wound is present and appears to be secondary to irritation from secondary dressings. No macerations of the skin of the periwound is noted. A dorsalis pedis pulse and posterior tibial pulse are both palpable on the right. No significant edema of the right foot or lower leg is present on exam today. After copious irrigation of the wound bed with normal saline, MatriStem sheet 3 x 3.5 cm was applied to the wound bed of the ulceration, followed by Adaptic and ABD, Webril, and the 3M Coban 2 Layer Compression System. An ulceration of the left medial lower leg is present, which measures approximately 1.0 x 1.0 cm. No purulent drainage is associated with the wound. No erythema of the skin surrounding the wound is present. No maceration of the skin of the periwound is noted. No significant edema of the left foot or lower leg is present on exam today. Discoloration of the skin of the right and left lower legs is present secondary to hemosiderin deposition. ASSESSMENT AND PLAN: 1. Chronic venous hypertension with ulcers. Dressing changes of SilvaSorb gel sheet and Allevyn will be continued for the ulceration over the left medial lower leg. The patient will be performing his own dressing changes. The patient will return to the Wound Center in 1 week for a dressing change of Adaptic and ABD, Webril, and the 3M Coban 2 Layer Compression System for the ulceration over the right medial lower leg. The patient is to utilize his compression garment in conjunction with dressing changes for the ulceration of the left medial lower leg. I will see Mr. Davidson, again in 2 weeks. 2. Hypertension. 3. History of hepatitis C. 4. Cirrhosis. 5. Arthritis. Job ID: [id number]
[2018-10-11] MEDS ORDERED: Sodium Chloride 0.9% 15 ML NEB ONE (16:15)
[2018-10-11] MEDS ORDERED: Lidocaine 2% 11 ML SYR ONE (16:15)
== END 2018-10-11 08:36 | disposition home or self-care (01) ==
LOC: WCC 08:35
PROVIDERS: ATTEND Family Medicine
DX: I87.311 Chronic venous hypertension (idiopathic) with ulcer of right lower extremity (principal); L97.919 Non-pressure chronic ulcer of unspecified part of right lower leg with unspecified severity; I10 Essential (primary) hypertension; K74.60 Unspecified cirrhosis of liver; M19.90 Unspecified osteoarthritis, unspecified site
CPT/HCPCS: A4218; C5271

== ENCOUNTER 2018-10-19 13:41 | Outpatient (CLI) | payer BC ==
[2018-10-19] MEDS ORDERED: Sodium Chloride 0.9% 15 ML NEB ONE (15:00)
== END 2018-10-19 13:42 | disposition home or self-care (01) ==
LOC: WCC 13:41
PROVIDERS: ATTEND Family Medicine
DX: I87.331 Chronic venous hypertension (idiopathic) with ulcer and inflammation of right lower extremity (principal); L97.819 Non-pressure chronic ulcer of other part of right lower leg with unspecified severity; I10 Essential (primary) hypertension; K74.60 Unspecified cirrhosis of liver; M19.90 Unspecified osteoarthritis, unspecified site
CPT/HCPCS: 29581; A4218

== ENCOUNTER 2019-03-27 08:38 | Outpatient (CLI) | payer BC ==
--- NOTE | 2019-03-27 10:58 | CT ---
LOW DOSE CT SCAN OF THE LUNGS FOR CANCER SCREENING: HISTORY: The patient has smoked for 30+ years and quit in July 2018. He smoked more than one pack a day. FINDINGS: No noncalcified lung nodules are seen. A calcified nodule is noted in the left lung apex, consistent with old granulomatous disease. No pleural or pericardial effusions are seen. There is no evidence of aneurysmal dilatation of the thoracic aorta. There are degenerative changes of the spine. Upper abdominal tomograms demonstrate cirrhosis of the liver. IMPRESSION: 1. Lung-RADS category 1 - negative. Follow-up LDCT is recommended in 12 months. 2. Category S: Cirrhosis of the liver. POS: [facility]
== END 2019-03-27 08:39 | disposition home or self-care (01) ==
LOC: CT 08:38
PROVIDERS: ATTEND Family Medicine
DX: Z87.891 Personal history of nicotine dependence (principal); K74.60 Unspecified cirrhosis of liver
CPT/HCPCS: G0297

== ENCOUNTER 2019-04-16 12:33 | Inpatient (IN) | payer BC ==
[~2019-04-16 12:33] MED LIST: Calcium Chloride 1 GM/10 ML Abboject SYRINGE ONE; Dextrose 50% Abboject 50 ML SYRINGE ONE; EPINEPHrine 1 MG/10 ML Abboject SYRINGE ONE; ISOVUE-370 76%-LOCM 1 ML ONE; Sodium Bicarb 50 MEQ/50 ML VIAL ONE
[2019-04-16 12:53] LABS: Base Excess-Venous -15.6 mmol/L (-2.0 to 3.0); Bicarbonate (HCO3v) 11.2 mmol/L (22.0-28.0); CO2 Tension (PvCO2) 29.7 mmHg (40.0-50.0); Calcium, Ionized 1.09 mmol/L (See Comments:); Chloride 112 mmol/L (98-107); Potassium 4.6 mmol/L (3.5-5.1); Sodium 142 mmol/L (138-145); T. Carbon Dioxide 12.1 mmol/L (22.0-28.0); vO2 Saturation-calc 81.7 % (60.0-85.0)
[2019-04-16 13:04] LABS: INR-International Normal Ratio 2.1; PTT 32.3 SEC (22.9-36.1); Prothrombin Time 23.6 SEC (12.0-14.7)
[2019-04-16 13:06] LABS: Hemoglobin 5.9 g/dL (14.0-18.0); Mean Corpuscular HGB CONC 34.5 g/dL (32.0-36.0); Mean Corpuscular Hemoglobin 31.1 pg (27.0-31.0); Mean Corpuscular Volume 90.2 fL (78.0-98.0); Platelet Count 138 thou/uL (130-400); RBC Distribution Width 13.9 % (11.5-14.5); Red Blood Cell (RBC) Count 1.89 mill/uL (4.70-6.10); White Blood Cell (WBC) Count 18.5 thou/uL (4.8-10.8)
[2019-04-16] MEDS ORDERED: Succinylcholine Chloride 20 MG/ML 10 ml SYRINGE FS ONE (13:14)
[2019-04-16] MEDS ORDERED: Lidocaine 1% PF 5 ML VIAL ONE (13:14)
[2019-04-16] MEDS ORDERED: Rocuronium Bromide 10 MG/ML (10ML VIAL) ONE (13:14)
[2019-04-16] MEDS ORDERED: PHENYLEPHRINE-NS 100 MCG/ML 10 ML SYRINGE ONE (13:14)
[2019-04-16 13:17] LABS: #Eosinphils 0.1 thou/uL (0.0-0.7); #Lymphocytes 1.9 thou/uL (1.20-3.40); #Neutrophils 15.5 thou/uL (1.40-6.50); %Eosinophils 0.5 % (0.0-10.0); %Lymphocytes 10.1 % (21.0-51.0); %Monocytes 5.3 % (0.0-10.0); Ovalocytes SLIGHT = 2-5 cells (100X) (0-1/hpf); Polychromasia SLIGHT = 2-3 cells (100X) (0-2/hpf)
[2019-04-16 13:18] LABS: Platelet Morphology Comment Appears Adequate
[2019-04-16 13:25] LABS: Acetaminophen Less than 6.0 mcg/mL (10.0-30.0); Alcohol Less than 10 mg/dL (Less than 10); Salicylate Less than 8.0 mg/dL (15.0-30.0)
[2019-04-16 13:26] LABS: ALT (SGPT) 205 U/L (8-55); AST (SGOT) 214 U/L (5-34); Albumin 2.5 g/dL (3.5-5.0); Alkaline Phosphatase 56 U/L (40-110); Anion Gap 22 mmol/L (10-20); BUN (Urea Nitrogen) 49 mg/dL (8.4-25.7); Bilirubin, Total 4.1 mg/dL (0.2-1.2); Calc. Creatinine Clearance 0 mL/min (70-130); Calcium 7.8 mg/dL (7.8-10.44); Carbon Dioxide 13 mmol/L (22-29); Chloride 111 mmol/L (98-107); Estimated GFR-MDRD 53; Globulin 1.6 g/dL (2.4-3.5); Glucose 104 mg/dL (70-105); Potassium 4.7 mmol/L (3.5-5.1); Protein, Total 4.1 g/dL (6.0-8.3); Sodium 141 mmol/L (136-145)
[2019-04-16] MEDS ORDERED: Pantoprazole 40 MG VIAL ONE (13:44)
[2019-04-16] MEDS ORDERED: Octreotide Acetate 100 MCG/ML VIAL ONE (13:44)
--- NOTE | 2019-04-16 13:51 | CT ---
CT angiogram chest with 3-D rendering: CT angiogram abdomen with 3-D rendering: HISTORY: GI bleed. Bloody diarrhea. FINDINGS: No evidence for central pulmonary artery thrombosis. No evidence for thoracic aortic aneurysm or dissection. Small hiatal hernia. No pleural effusion or p ericardial effusion. Very nodular liver evidence for cirrhosis with minimal ascites. Splenomegaly. Gas and fluid and food distention of the stomach. Marked abnormal wall thickening throughout the entire colon including the cecum, right colon, splenic fracture, left colon and down into the rectum evidence for extensive nonspecific pancolitis. There are a few scattered calcified arterial vascular plaque changes. No evidence for bowel aortic aneurysm or dissection. Small nonobstructing right renal calculus. Normal-appearing appendix. IMPRESSION: No evidence for thoracic or abdominal aortic aneurysm or dissection. Evidence for cirrhosis with splenomegaly and minimal ascites and evidence of portal hypertension. Extensive diffuse colonic wall thickening evidence for nonspecific pancolitis. Nonobstructing right renal calculus. Somewhat fluid and food and air distended stomach. Other findings as above.
[2019-04-16] MEDS ORDERED: Octreotide Acetate 50 MCG/ML AMP SLOW IVP SCH (14:00)
[2019-04-16] MEDS ORDERED: Octreotide Acetate 1,250 MCG in Sodium Chloride 0.9% 250 ML 250 ML IVPB SCH (14:00)
--- NOTE | 2019-04-16 15:56 | CON ---
DATE OF CONSULTATION: HISTORY OF PRESENT ILLNESS: A 58-year-old gentleman, who presented to the ER with marked weakness. His is at the bedside. The patient is awake, alert, and responsive. He was hypotensive. When he came in, the ER physicians have resuscitated him. The blood pressure is 120 systolic. His heart rate is 120, he is now down to 100. He has known history of hepatitis C. He received treatment by Dr. Jacobo, GI specialist. He has a previous history of syncope. Previous history of GI bleed, though he denies previous GI bleed as per his history today. PAST MEDICAL HISTORY: Hypertension; hepatitis C, on treatment; previous history of heavy alcohol abuse, though he said he has cut back drinking related to hepatitis C treatment; end-stage liver disease; cirrhosis; arthritis. PAST SURGICAL HISTORY: Recent right knee scope, lumbar laminectomy, umbilical hernia, orbital fracture repair, patella surgery in left knee, and right total arthroplasty. CHRONIC MEDICATIONS: 1. Lisinopril/hydrochlorothiazide. 2. Ibuprofen. 3. Zyrtec. ALLERGIES: NONE. SOCIAL HISTORY: A pack a day cigarettes for 20 years. Stop smoking 7 months ago. Heavy alcohol in the past. REVIEW OF SYSTEMS: Otherwise unremarkable. PHYSICAL EXAMINATION: VITAL SIGNS: His O2 saturation is 98%, pulse 100, blood pressure . GENERAL: He is awake, alert, and responsive. CHEST: Decreased breath sounds. No wheezing. CARDIAC: Normal S1 and S2. No gallop. ABDOMEN: No mass. LABORATORY DATA: Hemoglobin and hematocrit are low at 5.9 and 17. His venous blood gas; pH 7.18, pCO2 of 29, pO2 of 56. Creatinine 1.38. AST is 215, and ALT is 205. IMPRESSION: Gastrointestinal bleed, hypertension secondary to cirrhosis end-stage, previous alcohol abuse, previous tobacco abuse, hypertension, and azotemia. PLAN: I understand GI has been consulted for appropriate intervention. IV with Protonix. Supportive care. We will follow while in the hospital. Consultation note, 70 minutes with 50% of direct patient care. Job ID: [id number]
[2019-04-16] MEDS ORDERED: Ondansetron PF 4 MG/2 ML Vial ONE (15:57)
[2019-04-16 16:02] LABS: Hemoglobin 9.1 g/dL (14.0-18.0)
[2019-04-16 16:28] LABS: Troponin I Less than 0.010 ng/mL (< 0.028)
[2019-04-16 17:30] VITALS: BMI 27.8
--- NOTE | 2019-04-16 17:31 | CON ---
DATE OF CONSULTATION: REASON FOR CONSULTATION: GI hemorrhage. HISTORY OF PRESENT ILLNESS: Mr. Davidson is a 58-year-old gentleman, who came in with hematemesis and passing blood and syncope at home by EMS. His pressures were systolics in 80s on arrival, blood pressures 120s. He was resuscitated to a blood pressures around 107 to 120 with a pulse down to 100 with 2 units of uncross-matched blood. By the ER presently, he has not thrown up any more blood. He has been started on octreotide drip and Protonix drip. In the emergency room, he has had a CT of the lung and a CT dissection for unclear reasons. Emergency room physician called me and asked me to evaluate him for possible emergent endoscopy. This scan apparently showed a fluid-filled air distended stomach, colonic wall thickening, cirrhosis, splenomegaly, and minimal ascites. LABORATORY DATA: Notable for hemoglobin of 5.9 at 1242 hours today with a white count of 18,000 and platelet count 138. INR was 2.1. He has been given Kcentra apparently. Lactic acid was 13. Admission labs; sodium 143, potassium 4.7, BUN and creatinine of 49 and 1.38. Bilirubin of 4, AST and ALT of 214 and 205. Tox screen negative for alcohol, acetaminophen, or salicylates. PAST MEDICAL HISTORY: Notable for cirrhosis, from hepatitis C, was treated with about 3 years ago. He has not followed Dr. Jacobo at least 2 years he states. He reports that he has had a previous colonoscopy, which was negative. Hypertension and arthritis. PAST SURGICAL HISTORY: Right knee arthroscopy, umbilical hernia repair, lumbar laminectomy, left eye fracture, and right knee arthroplasty. ALLERGIES: NONE. MEDICATIONS: Here, he has received octreotide and Protonix. At home, he takes blood pressure medicines and takes NSAIDs. FAMILY HISTORY: Negative for colon cancer or liver disease. REVIEW OF SYSTEMS: Negative for chest pain. Positive for mild abdominal discomfort. Negative for history of GI bleeding in the past. Negative for history of heart disease, shortness of breath, or dyspnea. PHYSICAL EXAMINATION: VITAL SIGNS: Most recent blood pressure 108/61 and pulse 108. LUNGS: Clear. HEART: Regular rate and rhythm with clicks or murmurs. ABDOMEN: Soft and nontender. He is pale. There is shifting dullness. Slight fluid wave present. EXTREMITIES: Reveal no edema. No clubbing, cyanosis, or edema. NEUROLOGIC: He is alert and oriented to place, person, and time. ASSESSMENT: Gastrointestinal hemorrhage, likely either variceal related or NSAID related. RECOMMENDATIONS: 1. Antibiotics for bleeding and a GI bleed. Rocephin would be adequate if he is not allergic. 2. Resuscitation with urgent endoscopy this evening. Job ID: [id number]
[2019-04-16 17:37] LABS: Lactic Acid 5.8 mmol/L (0.5-2.2)
[2019-04-16] MEDS ORDERED: Fentanyl 100 MCG/2 ML VIAL ONE (18:17)
[2019-04-16 18:41] LABS: Troponin I Less than 0.010 ng/mL (< 0.028)
[2019-04-16] MEDS ORDERED: Propofol 1,000 MG/100 ML VIAL IV ONE (19:36)
[2019-04-16] MEDS ORDERED: DISCONTINUE PREVIOUS NARCOTIC PAIN MEDICATIONS AND BENZODIAZEPINES FS SCH (19:38)
[2019-04-16] MEDS ORDERED: Lorazepam 2 MG/ML VIAL SLOW IVP PRN (19:38)
[2019-04-16] MEDS ORDERED: fentaNYL Citrate/PF 2,000 MCG in Sodium Chloride 0.9% 60 ML IV SCH (19:38)
[2019-04-16] MEDS ORDERED: Propofol 1,000 MG/100 ML VIAL IV PRN (19:38)
[2019-04-16] MEDS ORDERED: Morphine 2 MG/ML SYRINGE SLOW IVP PRN (19:38)
[2019-04-16] MEDS ORDERED: Propofol BOLUS 1,000 MG/100 ML VIAL IV PRN (19:38)
[2019-04-16] MEDS ORDERED: Fentanyl BOLUS 250 ML IVPB PRN (19:38)
[2019-04-16] MEDS: Sodium Chloride 0.9% 1,000 ML IV SCH ×2 (20:19→21:19)
[2019-04-16] MEDS: Multivitamins, Adult 10 ML, Folic Acid 1 MG, Thiamine HCl 100 MG in Dextrose 5 %-0.45 %... IV SCH (20:21)
[2019-04-16 20:47] LABS: Actual Bicarbonate (HCO3a) 16.6 mEq/L (22-28); Base Excess (BEa) -7.9 mEq/L (-2.0 to +3.0); CO2 Tension 29.4 mmHg (35.0-45.0); Calcium, Ionized 1.06 mmol/L (1.12-1.30); Hemoglobin (Hb) 7.6 g/dL (14.0-18.0); O2 Tension (PaO2) 232.8 mmHg (80.0-100.0); Potassium - ABG Lab 4.74 mmol/L (3.70-5.30); pH, Arterial 7.37 (7.35-7.45)
[2019-04-16 20:49] LABS: Puncture Site RRA
[2019-04-16 21:48] LABS: Troponin I 0.034 ng/mL (< 0.028)
--- NOTE | 2019-04-16 23:41 | OP ---
DATE OF PROCEDURE: 04/16/2019 PROCEDURE PERFORMED: Esophagogastroduodenoscopy with control of hemorrhage. PREPROCEDURE DIAGNOSES: 1. Hemorrhagic shock. 2. Cirrhosis. 3. Heavy nonsteroidal anti-inflammatory drug use. 4. Coagulopathy. 5. Severe anemia, status post transfusion of 2 units of blood and 2 units of FFP, hemoglobin of 9 afterwards. POSTPROCEDURE DIAGNOSIS: Esophageal variceal bleed, banded x5. PROCEDURE IN DETAIL: After the patient was resuscitated in the emergency room, started on octreotide drip. He was brought to the endoscopy suite, where he was intubated for airway protection. The duodenoscope was advanced through the esophagus, stomach, and second and third portions of the duodenum. About 2 L of old clot blood were taken out of the stomach. There was no gastric varices seen or ulcer seen. Forward and retroflexed views in the stomach were normal. The duodenum was normal to the third portion. It is unclear if there was possible duodenal varix portion present in the third portion of the duodenum, but there was no visible vessel or bleeding from this area. The scope was brought back into the stomach, where again the stomach was fully cleared of the old blood. There was no evidence of gastric varices or gastric ulcers. There were 4 columns of grade 3 varices with red iqra sign, stigmata bleeding and high risk for rebleeding and 5 bands were placed. The scope was then removed. The patient tolerated the procedure well and he was brought to ICU, intubated as the Nuclear Security Officer felt he was not able to be extubated. He will remain intubated overnight, managed by Pulmonary for the vent. Job ID: [id number]
[2019-04-17] MEDS: Pantoprazole 80 MG in Sodium Chloride 0.9% 100 ML IVP SCH ×3 (00:25→20:16)
[2019-04-17] MEDS ORDERED: Sodium Chloride 0.9% 1,000 ML IV SCH ×2 (01:00→08:00)
[2019-04-17 02:02] LABS: Actual Bicarbonate (HCO3a) 11.1 mEq/L (22-28); Base Excess (BEa) -14.3 mEq/L (-2.0 to +3.0); Calcium, Ionized 1.03 mmol/L (1.12-1.30); Carboxyhemoglobin (COHb) 1.1 gm% (0.0-3.0); Hemoglobin (Hb) 6.7 g/dL (14.0-18.0); O2 Tension (PaO2) 111.2 mmHg (80.0-100.0); Potassium - ABG Lab 4.84 mmol/L (3.70-5.30); pH, Arterial 7.28 (7.35-7.45)
[2019-04-17 02:11] LABS: CO2 Tension 23.9 mmHg (35.0-45.0); Puncture Site LBA
[2019-04-17] MEDS ORDERED: Sodium Bicarb 50 MEQ/50 ML VIAL ONE ×3 (02:11→08:00)
[2019-04-17 02:12] LABS: ALV-art Gradient 144.125 (0-20)
[2019-04-17 02:13] LABS: Hemoglobin 7.1 g/dL (14.0-18.0); Mean Corpuscular Hemoglobin 31.8 pg (27.0-31.0); Mean Corpuscular Volume 93.5 fL (78.0-98.0); Mean Platelet Volume 9.6 fL (7.4-10.4); Platelet Count 76 thou/uL (130-400); RBC Distribution Width 14.2 % (11.5-14.5); Red Blood Cell (RBC) Count 2.23 mill/uL (4.70-6.10); White Blood Cell (WBC) Count 8.7 thou/uL (4.8-10.8)
[2019-04-17 02:30] LABS: Band 11 % (5-11); Lymphocytes 16 % (21-51); MDiff Complete? YES; Neutrophil 73 % (42-75); Platelet Morphology Comment Appears Decreased
[2019-04-17] MEDS ORDERED: Dextrose 50% Abboject 50 ML SYRINGE ONE ×2 (02:35→06:20)
[2019-04-17] MEDS ORDERED: cefTRIAXone\\ROCEPHIN 1 GM in Sodium Chloride 0.9% 100 ML IVPB SCH (05:00)
[2019-04-17 05:11] LABS: Band 15 % (5-11); Hemoglobin 7.6 g/dL (14.0-18.0); Hypochromia SLIGHT = 6-15 cells (100X) (0-5/hpf); Lymphocytes 23 % (21-51); MDiff Complete? YES; Mean Corpuscular HGB CONC 29.3 g/dL (32.0-36.0); Mean Corpuscular Hemoglobin 28.3 pg (27.0-31.0); Mean Corpuscular Volume 96.4 fL (78.0-98.0); Mean Platelet Volume 9.9 fL (7.4-10.4); Neutrophil 62 % (42-75); Nucleated RBC 2 % (0); Platelet Count 68 thou/uL (130-400); Platelet Morphology Comment Appears Decreased; RBC Distribution Width 13.7 % (11.5-14.5); Red Blood Cell (RBC) Count 2.68 mill/uL (4.70-6.10); White Blood Cell (WBC) Count 6.4 thou/uL (4.8-10.8)
[2019-04-17 05:16] LABS: Lactic Acid 12.4 mmol/L (0.5-2.2)
[2019-04-17 05:34] LABS: HBSAg Index 0.18 S/CO (0-0.99); Hep A IgM AB Non-Reactive (NonReactive); Hep A IgM S/CO 0.11 S/CO (0-0.79); Hep B Surf Ag Non-Reactive S/CO (NonReactive)
[2019-04-17 05:37] LABS: HBSAB Concentration 128.18 mIU/mL; Hep B Surf AB Reactive (NonReactive)
[2019-04-17 05:56] LABS: INR-International Normal Ratio 3.1; Prothrombin Time 31.8 SEC (12.0-14.7)
[2019-04-17 06:10] LABS: Calcium 7.5 mg/dL (7.8-10.44); Chloride 112 mmol/L (98-107); Sodium 144 mmol/L (136-145)
[2019-04-17 06:11] LABS: Albumin 2.5 g/dL (3.5-5.0)
[2019-04-17 06:14] LABS: Globulin 1.8 g/dL (2.4-3.5); Protein, Total 4.3 g/dL (6.0-8.3)
[2019-04-17 06:15] LABS: Anion Gap 25 mmol/L (10-20); Carbon Dioxide 11 mmol/L (22-29)
[2019-04-17 06:16] LABS: AST (SGOT) 3008 U/L (5-34); Alkaline Phosphatase 71 U/L (40-110)
[2019-04-17 06:18] LABS: BUN (Urea Nitrogen) 63 mg/dL (8.4-25.7)
[2019-04-17 06:19] LABS: ALT (SGPT) 2287 U/L (8-55)
[2019-04-17 06:20] LABS: Bilirubin, Total 10.8 mg/dL (0.2-1.2); Calc. Creatinine Clearance 33 mL/min (70-130); Estimated GFR-MDRD 23; Glucose 29 mg/dL (70-105)
[2019-04-17] MEDS ORDERED: Dextrose 5% in Water 1,000 ML IV PRN (06:38)
[2019-04-17] MEDS: Norepinephrine 8 MG/0.9% NS 250 ML IVPB SCH ×3 (06:41→21:44)
[2019-04-17] MEDS ORDERED: Dextrose 5 %-0.45 % NaCl 1,000 ML IV SCH (06:45)
[2019-04-17 07:31] LABS: Actual Bicarbonate (HCO3a) 7.5 mEq/L (22-28); Calcium, Ionized 1.05 mmol/L (1.12-1.30); Carboxyhemoglobin (COHb) 0.8 gm% (0.0-3.0); Hemoglobin (Hb) 8.3 g/dL (14.0-18.0); O2 Tension (PaO2) 78.1 mmHg (80.0-100.0); Potassium - ABG Lab 3.88 mmol/L (3.70-5.30)
[2019-04-17 07:37] LABS: CO2 Tension 20.5 mmHg (35.0-45.0); Puncture Site RBA; pH, Arterial 7.18 (7.35-7.45)
[2019-04-17 07:38] LABS: ALV-art Gradient 324.075 (0-20)
[2019-04-17] MEDS ORDERED: Sodium Bicarb 50 MEQ/50 ML VIAL IVP SCH ×3 (08:00→20:45)
[2019-04-17] MEDS ORDERED: Albumin 25% 25 GM/100 ML BOT IVPB SCH ×2 (08:09→16:08)
[2019-04-17 08:10] LABS: Magnesium 1.7 mg/dL (1.6-2.6)
--- NOTE | 2019-04-17 08:26 | HP ---
PRIMARY CARE PROVIDER: Unknown. HISTORY OF PRESENT ILLNESS: The patient is seen in the emergency room last night hypotensive with GI bleeding and was taken to the endoscopy room, underwent endoscopy by Dr. Mcgrath, was moved to ICU, seen by an field crew chief, Dr. Guan. He is currently intubated in Critical Care Unit on multiple medicines. PAST MEDICAL HISTORY: Pertinent for hepatitis C cirrhosis, hypersplenism, hypertension, and arthritis. PAST SURGICAL HISTORY: Right knee arthroscopy, umbilical hernia repair, lumbar laminectomy, and right knee arthroplasty. MEDICATIONS: Takes NSAIDs at home. Hydrochlorothiazide 25 mg a day. Lisinopril 40 mg a day. ALLERGIES: NO KNOWN DRUG ALLERGIES. SOCIAL HISTORY: . Smokes. No alcohol per history. FAMILY HISTORY: Father had lung cancer. REVIEW OF SYSTEMS: Unobtainable due to currently intubated and sedated. PHYSICAL EXAMINATION: VITAL SIGNS: Blood pressure in the 100/50 range, pulse 130, and respirations 38 -41. HEENT: Examination of his head, eyes, ears, nose, and throat reveals icteric sclerae, pinpoint pupils. Negative doll's eyes. Tympanic membranes reveals cerumen. Nose is clear. Oral mucous membranes are damp. NECK: No jugular venous distention, adenopathy or thyromegaly. CHEST: Good breath sounds. Occasional rhonchi. No wheezes. HEART: Tachycardia. S1, S2 normal. No murmurs. ABDOMEN: Soft. Bowel sounds are very quiet. No tenderness. No mass. Question of palpable spleen. EXTREMITIES: 1+ edema. No cyanosis. Early clubbing. Pulses carotid, radial and femoral pulses intact. Pedal pulses diminished. SKIN: Warm and dry. HEME/LYMPH: No tender or swollen lymph nodes in the axilla, inguinal or cervical area. NEUROLOGICAL: Facies symmetric. Negative doll's eyes. Pupils pinpoint, areflexic. Toes downgoing. DIAGNOSTIC STUDIES: I find no evidence of chest x-ray. EKG, sinus tachycardia, otherwise normal, reviewed by me. LABORATORY: Admitting hemoglobin 5.9, followup 9.1, 7.1 and 7.6 at 0400 hours this morning. Initial white count 18.5, 6.4 this morning. Initial platelet count 138,000, 68,000 this morning. INR on admission 2.1, 3.1 this morning. Chemistry, sodium 144, potassium 4.0, chloride 112, CO2 11, BUN 63, creatinine 2.83, . Lactic acid 13.0, 5.8. I have not been able to find an old creatinine. Arterial blood gases; current pH 7.18, CO2 20 and O2 78. ADMITTING DIAGNOSES: 1. Gastrointestinal bleed secondary to esophageal varices. 2. Cirrhosis secondary to hepatitis C. 3. Coagulopathy secondary to cirrhosis. 4. Hypersplenism. 5. Metabolic acidosis. 6. Acute renal failure. 7. History of hypertension. 8. Intubated and sedated. PLAN: 1. The patient currently on octreotide, we will continue. 2. Transfuse p.r.n. 3. Fresh frozen plasma. 4. Need discussion this morning with field crew chief for proceeding further. PROGNOSIS: Guarded. Job ID: [id number] [facility]
--- NOTE | 2019-04-17 08:47 | RAD ---
Exam: Chest one view HISTORY:Respiratory distress. Ventilated patient Comparison: 09/18/2011, 02/07/2013 FINDINGS: Lines and tubes: Endotracheal tube extends beyond the clavicle. Cardiac silhouette: Normal Aorta: Unremarkable Pulmonary vessels: Normal Costophrenic angles: Clear LUNGS: No masses or consolidation. Subsegmental atelectasis in the left lung base. Pneumothorax: None Osseous abnormalities: None IMPRESSION: Endotracheal tube extending just down the level of clavicles.
--- NOTE | 2019-04-17 09:24 | PRG ---
DATE OF SERVICE: 04/17/2019 SUBJECTIVE: Pete Davidson who is in the ICU on the vent. He had issues last night with hypotension and metabolic acidosis. He received bicarb two amps last night, two amps now. Remains on a pressors, Levophed. OBJECTIVE: VITAL SIGNS: Blood pressure 107/51, pulse 120, respirations 30. GENERAL: He is more jaundiced. CHEST: Decreased breath sounds without any wheezing. CARDIAC: Normal S1 and S2. No gallops. ABDOMEN: Distended. LABORATORY DATA: Hemoglobin and hematocrit 7 and 25, platelet count is 68, white count 6000. His pO2 is 78, pCO2 rate of 20, PEEP of 5. His BUN and creatinine are elevated at 63 and 2.83 respectively. He has worsening renal failure. His AST has increased substantially to 3008, yesterday was 214. IMPRESSION: 1. Status post gastrointestinal bleed. 2. Hepatitis C. 3. Markedly abnormal liver function, worsening hepatic failure. 4. Encephalopathy. 5. Sepsis. 6. Renal failure. PLAN: Continue broad-spectrum antibiotics. Albumin has been initiated. It is clearly not at this stage. He is on Protonix and octreotide. IV fluids, D5 and half with 2 amps of bicarb. Prognosis remains guarded, we will follow. This is 45 minutes of critical time. Job ID: [id number]
[2019-04-17] MEDS: Hydrocortisone Sod Succ/PF 100 mg/2 ml Vial IVP SCH ×3 (10:40→20:55)
[2019-04-17 11:40] VITALS: BP 91/57
--- NOTE | 2019-04-17 11:51 | CON ---
DATE OF CONSULTATION: REASON FOR CONSULT: Anti-C alloantibody. HISTORY OF PRESENT ILLNESS: Mr. Davidson is a 58-year-old gentleman with past medical history of anemia and thrombocytopenia from hepatitis C and treatment for hepatitis C. He was transfusion dependent back in 2011 when he was seen by Dr. Guardado. He received interferon for his hepatitis C and once that was completed, his counts improved. He presented to the emergency room via EMS yesterday for hemoptysis and syncope. His systolic pressures were in the 80s. His hemoglobin was 5.9. He was given 2 units of blood on emergent basis, also 2 FFP. He was taken for emergent endoscopy where he had a variceal banding. He required intubation and is currently in the ICU. He is on octreotide and vasopressors. Blood bank test performed showed a positive anti-C autobody and a positive [place]. He has a past history of positive antibody screen. In 2018, he was anti-E and anti-C positive. On arrival yesterday, his bilirubin was 4.1, his AST was 214, and his ALT was 205. Overnight has significantly worse and the bilirubin is currently 10.8, AST is , and ALT is 2287. The patient was seen at bedside with his mom present. He has a history of alcohol use, but has decreased intake over the last several years. He has chronic back pain and takes nonsteroidal anti-inflammatories routinely. He is sedated with propofol drip. History was obtained from review of chart and speaking with mother. PAST MEDICAL HISTORY: 1. Hepatitis C treated with interferon in 2011. 2. Chronic pancytopenia secondary to cirrhosis from hepatitis C. 3. History of alcohol abuse. 4. Hypertension. 5. Osteoarthritis. 6. Hypersplenism. PAST SURGICAL HISTORY: Right knee arthroscopy, umbilical hernia repair, laminectomy. ALLERGIES: NO KNOWN DRUG ALLERGIES. HOME MEDICATIONS: 1. Hydrochlorothiazide. 2. Lisinopril. FAMILY HISTORY: Father had a history of lung cancer. No history of liver disease. SOCIAL HISTORY: Lives with a significant other. Current smoker. History of heavy alcohol use. REVIEW OF SYSTEMS: Unable to obtain secondary to intubation and sedation. PHYSICAL EXAMINATION: VITAL SIGNS: Temperature is 102, pulse is 135, respiratory rate 42, blood pressure is 91/53, he is 93% on FiO2 of 60%. GENERAL: This is an ill-appearing male, intubated, and sedated. HEENT: Normocephalic and atraumatic. CV: Tachycardia with occasional PVCs. LUNGS: Clear anterior. ABDOMEN: Distended and firm. Bowel sounds are positive. EXTREMITIES: No clubbing or cyanosis. SKIN: No rash. HEMATOLOGIC: No petechiae or purpura. NEUROLOGIC: He is sedated with propofol. PERTINENT LABORATORY DATA AND X-RAYS: Current WBCs are 6.4, hemoglobin 7.6, hematocrit 25.9, platelet count is 68,000, he has 62% neutrophils, 15% bands, 23% lymphocytes. PT is 31.8, INR is 3.3, and PTT is 32.3. Sodium is 144, potassium 4.0, chloride 112, CO2 is 11, BUN is 63, creatinine 2.83, calcium is 7.5, bilirubin is 10.8, AST is , ALT is 2287, serum total protein is 4.3, albumin 2.5, globulin 1.8. ASSESSMENT: 1. Acute gastrointestinal bleed, status post esophageal varices banding. 2. Cirrhosis secondary to hepatitis C. 3. Coagulopathy secondary to cirrhosis. 4. 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 5. Acute renal failure. 6. Worsening liver function tests possibly secondary to hypotension. DISCUSSION: Case was discussed with Dr. Hinds and Dr. Rizo. The patient has alloantibodies from prior transfusions. He should be transfused the most compatible blood. Would continue supportive care with IV fluids and octreotide. The rise in his LFTs overnight are likely multifactorial secondary to metabolic acidosis, hypotension with acute liver injury, and likely a component of hemolysis. I would continue to monitor them closely. He is on hydrocortisone 50 mg four times daily, remains in critical condition. Thank you for the consult. We will follow along with his hospital course. Job ID: [id number]
--- NOTE | 2019-04-17 13:02 | PRG ---
DATE OF SERVICE: 04/17/2019 SUBJECTIVE: The patient remains intubated. He is on 20 mcg of Levophed to maintain blood pressure. The patient is also on bicarb drip. Family is at bedside. OBJECTIVE: VITAL SIGNS: Temperature is 99.3, blood pressure 95/47 (20 mcg of Levophed), pulse of 100. GENERAL: He is sedated and intubated. HEENT: Sclerae anicteric. CARDIOVASCULAR: Shows normal S1, S2. Tachycardic. CHEST: Shows breath sounds. ABDOMEN: Soft, mildly protuberant, but no distention. No tympany. He has faint bowel sounds. EXTREMITIES: Shows trace edema. LABORATORY DATA: WBC 6.4, hemoglobin 7.6, and platelet count of 68,000. INR is 3.1. Sodium 144, potassium 4.0, chloride 112, CO2 11, creatinine 2.83, bilirubin 10.8, AST 3008, ALT 2287, alkaline phosphatase 71. Serum ammonia 287. Blood gas, pH 7.18. ASSESSMENT: 1. Status post variceal bleed, status post banding ligation with hemostasis. 2. Cirrhosis from prior hepatitis C, that was treated and alcohol usage. 3. Multiorgan failure. 4. Shock liver with severe elevated liver function tests. 5. Hepatic encephalopathy. 6. Anemia from acute blood loss blood transfusion. RECOMMENDATION: 1. Continue supportive care. 2. Continue IV octreotide and bicarb drip. 3. Continue Levophed for pressure support. 4. Given increasing renal dysfunction, we will start on IV albumin q.8. 5. Lactulose per NG tube 30 mL q.i.d. 6. Prognosis is poor. Condition was discussed with his mother by bedside. At the present time, she wants to proceed with all supportive care and measures. Job ID: [id number]
--- NOTE | 2019-04-17 13:07 | PDOC.HOSPP ---
- Subjective Encounter Date: 04/17/19 Encounter Time: 13:05 Subjective: intubated - Objective Vital Signs & Weight: Vital Signs (12 hours) Temp Pulse Resp BP Pulse Ox 04/17/19 12:56 96 04/17/19 12:00 99.4 F 39 H 04/17/19 11:48 99.3 F 37 H 100 04/17/19 11:36 101 H 91/57 L 04/17/19 11:31 99.2 F 38 H 100 04/17/19 11:00 99.2 F 04/17/19 10:00 38 H 04/17/19 08:41 101.9 F H 99 04/17/19 08:15 102 F H 04/17/19 08:00 102 F H 40 H 04/17/19 07:14 129 H 107/51 L 04/17/19 06:00 39 H 04/17/19 04:00 35 H 04/17/19 02:00 36 H Weight Weight 177 lb 14.609 oz Most Recent Monitor Data Heart Rate from ECG 99 NIBP 95/47 NIBP BP-Mean 63 Respiration from ECG 38 SpO2 100 I&O: 04/16/19 04/17/19 04/18/19 06:59 06:59 06:59 Intake Total 1549.6 435 Output Total 305 15 Balance 1244.6 420 Result Diagrams: 04/17/19 04:37 04/17/19 05:41 Additional Labs: Accuchecks 04/17/19 04/17/19 04/17/19 06:50 03:20 02:26 POC Glucose 60 L 89 56 L* Hospitalist ROS - Medication Medications: Active Medications Generic Name Dose Route Start Last Admin Trade Name Freq PRN Reason Stop Dose Admin Hydrocortisone Sodium Succinate 50 mg 04/17/19 08:00 04/17/19 10:40 Solu-Cortef IVP 04/24/19 02:01 50 mg 0200,0800,1400,2000 JUSTIN Administration Pantoprazole Sodium 80 mg/ 100 mls @ 10 mls/hr 04/16/19 13:45 04/17/19 11:14 Sodium Chloride IVP 100 mls INF JUSTIN Administration Multivitamins 10 ml/ Folic 1,011.2 mls @ 100 mls/hr 04/16/19 20:00 04/16/19 20:21 Acid 1 mg/ Thiamine HCl 100 mg IV 1,011.2 mls / Dextrose/Sodium Chloride Q24HR JUSTIN Administration Ceftriaxone Sodium 1 gm/ 100 mls @ 200 mls/hr 04/17/19 05:00 04/17/19 05:03 Sodium Chloride IVPB 100 mls 0500 JUSTIN Administration Fentanyl Citrate 2,000 mcg/ 100 mls @ 0 mls/hr 04/16/19 19:38 04/17/19 01:22 Sodium Chloride IV 05/16/19 19:38 100 mls INF JUSTIN Administration Protocol Per Protocol Norepinephrine Bitartrate 250 mls @ 0 mls/hr 04/17/19 05:58 04/17/19 06:41 Levophed IVPB 250 mls INF JUSTIN Administration Protocol Titrate Sodium Bicarbonate 100 meq/ 1,100 mls @ 150 mls/hr 04/17/19 08:30 04/17/19 08 :50 Dextrose/Sodium Chloride IV 1,100 mls .Q7H20M JUSTIN Administration Lorazepam 2 mg 04/16/19 19:38 04/16/19 20:13 Ativan SLOW IVP 05/16/19 19:38 2 mg Q1H PRN Administration Breakthrough agitation Propofol 1,000 mg 04/16/19 19:38 04/17/19 00:29 Diprivan IV 05/16/19 19:38 1,000 mg INF PRN Administration TO ACHIEVE GOAL RASS Protocol Sodium Chloride 10 ml 04/16/19 21:00 04/17/19 09:32 Flush - Normal Saline IVF 10 ml Q12HR JUSTIN Administration - Exam Neck: no JVD Heart: RRR, no murmur Respiratory: CTAB, no wheezes Gastrointestinal: soft, diminished bowl sounds Extremities: no edema Hosp A/P (1) Esophageal varices with hemorrhage Code(s): I85.01 - ESOPHAGEAL VARICES WITH BLEEDING Status: Acute Qualifiers: Esophageal varices type: secondary Qualified Code(s): I85.11 - Secondary esophageal varices with bleeding (2) Cirrhosis of liver Code(s): K74.60 - UNSPECIFIED CIRRHOSIS OF LIVER Status: Chronic Qualifiers: Ascites presence: unspecified (3) Acute tubular necrosis Code(s): N17.0 - ACUTE KIDNEY FAILURE WITH TUBULAR NECROSIS Status: Acute (4) Metabolic acidosis Code(s): E87.2 - ACIDOSIS Status: Acute (5) Coagulopathy Status: Acute (6) Hepatitis C Code(s): B19.20 - UNSPECIFIED VIRAL HEPATITIS C WITHOUT HEPATIC COMA Status: Acute (7) Hypertension Code(s): I10 - ESSENTIAL (PRIMARY) HYPERTENSION Status: Chronic Qualifiers: Hypertension type: essential hypertension Qualified Code(s): I10 - Essential (primary) hypertension - Plan post endoscopy, received emergent tranfusion 3with uncrossmatched blood ATN- oliguric - consulted Dr Beck on vent- pulmonology on octreotidon levofed in iv PPI on iv fluids with bicarbonate for metabolic acidosis prognosis guarded, family aqare 30 min critical care time-12:45 to 1:15 PM
[2019-04-17] MEDS: Dextrose 50% Abboject 50 ML SYRINGE IVP PRN ×2 (13:49→13:54)
[2019-04-17 14:08] LABS: BUN (Urea Nitrogen) 60 mg/dL (8.4-25.7); Calc. Creatinine Clearance 25 mL/min (70-130); Calcium 7.6 mg/dL (7.8-10.44); Chloride 109 mmol/L (98-107); Estimated GFR-MDRD 17; Potassium 5.6 mmol/L (3.5-5.1); Sodium 141 mmol/L (136-145)
[2019-04-17 14:15] LABS: Carbon Dioxide Less than 8 mmol/L (22-29); Glucose 32 mg/dL (70-105)
[2019-04-17 14:40] LABS: Creatinine, Urine 95.98 mg/dL (63-166); Sodium, Urine Less than 20 mmol/L (Not Available)
[2019-04-17] MEDS ORDERED: Dextrose 10% in Water 1,000 ML IV SCH (14:45)
[2019-04-17] MEDS ORDERED: NACL IV SCH (16:00)
[2019-04-17] MEDS ORDERED: DEXTROSE IV SCH (16:00)
[2019-04-17] MEDS ORDERED: SODIUM BICARBONATE IV SCH (16:00)
--- NOTE | 2019-04-17 17:29 | CON ---
DATE OF CONSULTATION: SERVICE: Renal Medicine. HISTORY OF PRESENT ILLNESS: Mr. Davidson is a 58-year-old white male, who was admitted due to a hemorrhagic shock. He underwent an upper GI endoscopy with Dr. Mcgrath and finding of old clotted blood was noted. He was also given octreotide. We are now seeing this patient for his acute kidney injury. He has had a previous mild abnormal creatinine in the past, which has simply been observed. REVIEW OF SYSTEMS: Not obtainable since the patient is intubated and sedated. Please note, we are currently following this patient for the acute kidney injury. CURRENT MEDICATIONS: 1. Albumin 25 g IV q.6. 2. Multivitamin daily. 3. Ceftriaxone 1 g daily. 4. Bicarbonate drip. 5. Hydrocortisone 50 mg IV q.3, q.8 hours. 6. Lactulose 20 g t.i.d. 7. Lorazepam p.r.n. 8. Octreotide drip as directed. 9. Propofol drip. 10. Xifaxan 550 mg p.o. b.i.d. PAST MEDICAL HISTORY: The patient has history of cirrhosis secondary to an underlying chronic hepatitis C, DJD, and longstanding hypertension. PAST SURGICAL HISTORY: Status post right knee arthroscopy, umbilical hernia repair, status post lumbar laminectomy, status post left orbital fracture with repair, status post partial patella removal in left knee quadriceps repair, status post right total knee arthroplasty, status post upper GI endoscopy. ALLERGIES: NO KNOWN DRUG ALLERGIES. TRAUMA: None. IMMUNIZATIONS: Up-to-date. HOSPITALIZATIONS: Please see past medical history. SOCIAL HISTORY: The patient is , lives in [place], 1 adopted son. 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 Smokes for 10 years, 1 pack a day. History of alcohol abuse, but currently no alcohol intake. Status post IV drug use. Education, high school, some college courses. PHYSICAL EXAMINATION: VITAL SIGNS: Blood pressure is currently noted at 95/45, heart rate 101, respiratory rate 29, O2 saturation 89% to 92%. GENERAL: The patient is sedated and intubated, on ventilator support. SKIN: Decreased turgor. HEENT: He has pale conjunctivae. Anicteric sclerae. No neck mass. No carotid bruits. No JVD. CHEST: No deformities. LUNGS: Clear. Decreased breath sounds. HEART: Normal sinus rhythm. No murmurs. No gallops. No rubs. ABDOMEN: Globular, soft, and nontender. No masses. EXTREMITIES: Trace edema. NEUROLOGIC: Sedated, intubated. No tremors. No asterixis. LABORATORY DATA: Laboratories of April 17, 2019: Urine sodium less than 20, urine creatinine 95.8. Urinalysis pending. White count 6.4, hemoglobin 7.6. Sodium 141, potassium 5.6, chloride 109, bicarbonate less than 8, BUN 60, creatinine 3.8, calcium 7.6. Further review of his serum creatinine shows the following April 16, 2019, BUN 49, creatinine 1.35; October 10, 2017, creatinine 0.83. Chest x-ray on April 17, 2019, shows subsegmental atelectasis. No overt pneumothorax. No CHF. ASSESSMENT AND PLAN: 1. Acute kidney injury, consider hemodynamically-mediated renal dysfunction due to the low blood pressure and gastrointestinal bleed. Please note, this patient was also on JAYCE inhibitors and on diuretic, and this may also be playing a factor in the worsening renal dysfunction. Continue optimizing hemodynamics. Continue volume repletion. Due to the severe metabolic acidosis, change IV fluid to isotonic bicarbonate - D5 water 850 mL plus 3 ampules of sodium bicarbonate and run this at 150 mL/hr. 2. No indication for any dialytic intervention. If no improvement, we may need to consider the possibility of an acute tubular necrosis. A repeat urinalysis will be done to review for any evidence of acute tubular necrosis. 3. Overall, supportive care. 4. Hypotension, on IV fluid and pressor support. Albumin infusion 25 g IV q.6 was also started. 5. Cirrhosis/gastrointestinal bleed. Gastroenterology following. 6. PRN blood transfusion. His overall prognosis remains poor; case discussed with and mother Thank you for the consult. We will continue to follow. Job ID: [id number] [facility]
[2019-04-17 19:50] LABS: Bilirubin Negative (Negative); Blood, Urine 1+ (Negative); Clarity Clear (Clear); Glucose, Urine (Dipstick) Normal (Negative); Leukocyte 75 Leu/uL (Negative); Nitrite Negative (Negative); Protein, Urine (Dipstick) 10 mg/dL (Neg-Trace); Squamous Epithelial 0-3 HPF (0-3); Urobilinogen Normal mg/dL (Less than 2)
[2019-04-17 19:57] LABS: Bacteria/HPF None Seen HPF (None Seen)
[2019-04-17 19:59] LABS: Actual Bicarbonate (HCO3a) 6.7 mEq/L (22-28); Base Excess (BEa) -24.3 mEq/L (-2.0 to +3.0); CO2 Tension 34.5 mmHg (35.0-45.0); Calcium, Ionized 0.93 mmol/L (1.12-1.30); Carboxyhemoglobin (COHb) 2.1 gm% (0.0-3.0); Hemoglobin (Hb) 7.5 g/dL (14.0-18.0); O2 Tension (PaO2) 96.1 mmHg (80.0-100.0); Potassium - ABG Lab 6.21 mmol/L (3.70-5.30)
[2019-04-17 20:26] LABS: Glucose 71 mg/dL (70-105)
[2019-04-17] MEDS ORDERED: Vasopressin 40 UNIT, Admixture Fee 1 EACH in Sodium Chloride 0.9% 100 ML IV SCH (20:30)
[2019-04-17] MEDS: Calcium Gluc 4.6 MEQ/10 ML (100 MG/ML) SLOW IVP SCH ×2 (20:37→20:48)
[2019-04-17 20:44] LABS: Hemoglobin 7.4 g/dL (14.0-18.0)
[2019-04-17] MEDS ORDERED: Sodium Bicarbonate 150 MEQ in Dextrose 5% in Water 1,000 ML IV SCH (20:45)
[2019-04-17] MEDS ORDERED: Rifaximin 550 MG TAB PO SCH (21:00)
[2019-04-17] MEDS: Multivitamins, Adult 10 ML, Folic Acid 1 MG, Thiamine HCl 100 MG in Dextrose 5 %-0.45 %... IV SCH (21:06)
[2019-04-17 23:08] VITALS: TEMP 97.8
[2019-04-18 01:20] LABS: Actual Bicarbonate (HCO3v) 9 mEq/L (22-28); Base Excess -20.4 mEq/L (-2.0 to +3.0); Calcium, Ionized 0.83 mmol/L (1.16-1.32); Chloride (ABG LAB) 99 mmol/L (98-106); Hemoglobin (Hb) 6.4 g/dL (13.1-17.2); Potassium - ABG Lab 7.49 mmol/L (3.70-5.30); Sodium 142.5 mmol/L (133-146)
[2019-04-18 01:23] LABS: Hemoglobin 6.4 g/dL (14.0-18.0); Mean Corpuscular HGB CONC 32.6 g/dL (32.0-36.0); Mean Corpuscular Hemoglobin 31.8 pg (27.0-31.0); Mean Corpuscular Volume 97.7 fL (78.0-98.0); Mean Platelet Volume 9.9 fL (7.4-10.4); Platelet Count 42 thou/uL (130-400); RBC Distribution Width 13.8 % (11.5-14.5); Red Blood Cell (RBC) Count 2.02 mill/uL (4.70-6.10)
[2019-04-18 01:40] LABS: BUN (Urea Nitrogen) 60 mg/dL (8.4-25.7); Calc. Creatinine Clearance 19 mL/min (70-130); Calcium 7.6 mg/dL (7.8-10.44); Chloride 105 mmol/L (98-107); Estimated GFR-MDRD 12; Glucose 81 mg/dL (70-105); Sodium 150 mmol/L (136-145)
[2019-04-18 01:42] LABS: Band 16 % (5-11); Hypochromia SLIGHT = 6-15 cells (100X) (0-5/hpf); Lymphocytes 37 % (21-51); MDiff Complete? YES; Metamyelocyte 6 % (0-0); Monocytes 17 % (0-10); Neutrophil 24 % (42-75); Nucleated RBC 19 % (0); Platelet Morphology Comment Appears Decreased
[2019-04-18 01:51] LABS: Lactic Acid 28.5 mmol/L (0.5-2.2)
[2019-04-18 01:52] LABS: Carbon Dioxide Less than 8 mmol/L (22-29); Potassium 8.2 mmol/L (3.5-5.1)
[2019-04-18 01:53] LABS: ALT (SGPT) 2990 U/L (8-55); Alkaline Phosphatase 186 U/L (40-110); Bilirubin, Direct 2.4 mg/dL (0.1-0.3); Bilirubin, Total 6.3 mg/dL (0.2-1.2); Protein, Total 3.3 g/dL (6.0-8.3)
[2019-04-18] MEDS: Hydrocortisone Sod Succ/PF 100 mg/2 ml Vial IVP SCH (01:53)
[2019-04-18 01:55] LABS: AST (SGOT) Greater than 3500 U/L (5-34)
[2019-04-18] MEDS ORDERED: Sodium Bicarb 50 MEQ/50 ML VIAL IVP SCH (02:15)
[2019-04-18 02:16] LABS: pH (venous) 7.01 (7.32-7.43)
[2019-04-18 02:17] LABS: pH, Arterial 6.91 (7.35-7.45)
--- NOTE | 2019-04-18 07:17 | EKG ---
Test Reason : Blood Pressure : / mmHG Vent. Rate : 103 BPM Atrial Rate : 103 BPM P-R Int : 116 ms QRS Dur : 082 ms QT Int : 362 ms P-R-T Axes : 084 060 063 degrees QTc Int : 474 ms Sinus tachycardia Otherwise normal ECG Confirmed by DR. Eusebia ANDERSON ([id number]) on 04/18/2019 7:17:00 AM Referred By: Confirmed By:DR. Eusebia ANDERSON
[2019-04-18] MEDS ORDERED: Folic Acid 1 MG TAB PO SCH (09:00)
[2019-04-18] MEDS ORDERED: Thiamine 100 MG TAB PO SCH (09:00)
--- NOTE | 2019-04-19 07:27 | DIS ---
DATE OF ADMISSION: 04/16/2019 DATE OF DISCHARGE: 04/18/2019 No PCP. DATE OF : 04/18/2019 at 3:08 a.m. FINAL DIAGNOSES: Hypovolemic shock, acute gastrointestinal bleeding from esophageal varices, cirrhosis of the liver, acute tubular necrosis, metabolic acidosis, coagulopathy, and history of hepatitis C, and hyperkalemia. HOSPITAL COURSE: The patient presented to [facility] Emergency Room on 04/16/2019, was seen there by GI. Dr. Sanjeev Mcgrath. He had come in with systolic blood pressures in the 80s. He received 2 units of uncross-matched blood in the emergency room, started on octreotide and Protonix. His hemoglobin on admission was 5.9, white count of 18,000, platelet count of 138,000. INR 2.1. He was given Kcentra. Lactic acid was 13. Creatinine with 1.38, BUN was 49, bilirubin 4. Transaminases in the 200 range. He was taken to endoscopy, where he was found to have esophageal variceal bleeding. Bleeding sites were banded. He was moved to intensive care unit. He was also seen by Dr. Guan, Pulmonology. The patient was intubated for the procedure, transferred to ICU on 04/17/2019. He was intubated, sedated, tachycardic, blood pressure 100/50, respirations 38 to 41. White count was down to 6.4, and platelet count was down to 68,000. INR was 3.1. His creatinine had climbed to 2.83, BUN 63. The patient was on octreotide, pressors, and PPI. The patient became aneuric. His creatinine increased to 3.8. Dr. Jayy Beck, Urology, was called. On , he underwent CPR. His potassium at that time was 8.2. Carbon dioxide was less than 0.8. Creatinine was up to 5.01. Resuscitation was eventually unsuccessful, and he was pronounced at 3:08. No autopsy was requested. Body was released to home. Job ID: [id number]
[2019-04-19 12:09] LABS: Hep C PCR-Quant HCV Not Detected IU/mL (.)
--- NOTE | 2019-04-19 22:47 | PQF ---
MARÍA [employer]BL[employer]NC[employer] C MD [id number] CLINICAL DOCUMENTATION CLARIFICATION FORM: POST DISCHARGE Addendum to original discharge summary date: ____ Late entry note date: __ DATE:04/19/19 ATTN: Elizabeth Cherry Please exercise your independent, professional judgment in responding to the clarification form. Clinical indicators are provided on the bottom of this form for your review In your clinical opinion based on clinical findings below, can you please further specify the type of Esopageal Varices if : Please check appropriate box(s): [ ] Primary Esophageal Varices [ ] Secondary Esophageal Varices due to Liver Cirrhosis [ ] Othe condition, please specify: [ ] Unable to determine In addition, please specify: Present on Admission (POA): [ ] Yes [ ] No [ ] Unable to determine For continuity of documentation, please document condition throughout progress notes and discharge summary. Thank You. CLINICAL INDICATORS - SIGNS / SYMPTOMS / LABS H&P p1 04/17 Dr Parikh Seen in the ER last night hypotensive with GI bleeding and was takwn to the endoscopy room H&P p1 04/17 Dr Parikh Vital sign BP 100/50, pulse 130, Resp 38-41 H&P p1 04/17 Dr Parikh No alchol per history PN p1 04/17 Dr Guan Markedly abnormal liver function, worsening hepatic failure RISK FACTORS H&P p2 04/17 - GI bleed secondary to Esophageal Varices H&P p2 04/17 - Cirrhosis secondary to hepatitis C H&P p2 04/17 -Metabolic Acidosis H&P p2 04/17 -Coagulopathy secondary to Cirrhosis TREATMENTS: Operative report p1 04/16 EGD with Control of bleeding via banding Blood bank 04/16 2 units RBC Blood bank 04/16 2 units Fresh Frozen plasma (This form is maintained as a part of the permanent medical record) 2014 [employer] All Rights Reserved [email or web address] [not provided] [email or web address]
== END 2019-04-18 03:08 | disposition expired | DRG 432 ==
LOC: ERS 12:33 → CCU 16:39
PROVIDERS: ADMIT Internal Medicine; ATTEND Internal Medicine
PROC: 06L38CZ Occlusion of Esophageal Vein with Extraluminal Device, Via Natural or Artificial Opening Endoscopic (ICD-10-PCS; principal; 2019-04-16)
PROC: 30233L1 Transfusion of Nonautologous Fresh Plasma into Peripheral Vein, Percutaneous Approach (ICD-10-PCS; 2019-04-16)
PROC: 30233N1 Transfusion of Nonautologous Red Blood Cells into Peripheral Vein, Percutaneous Approach (ICD-10-PCS; 2019-04-16)
PROC: 30233K0 Transfusion of Autologous Frozen Plasma into Peripheral Vein, Percutaneous Approach (ICD-10-PCS; 2019-04-16)
PROC: 3E033XZ Introduction of Vasopressor into Peripheral Vein, Percutaneous Approach (ICD-10-PCS; 2019-04-16)
PROC: 0BH17EZ Insertion of Endotracheal Airway into Trachea, Via Natural or Artificial Opening (ICD-10-PCS; 2019-04-16)
PROC: 5A1945Z Respiratory Ventilation, 24-96 Consecutive Hours (ICD-10-PCS; 2019-04-16)
PROC: 5A12012 Performance of Cardiac Output, Single, Manual (ICD-10-PCS; 2019-04-18)
DX: K74.60 Unspecified cirrhosis of liver (principal); N17.0 Acute kidney failure with tubular necrosis; A41.9 Sepsis, unspecified organism; K72.00 Acute and subacute hepatic failure without coma; I85.11 Secondary esophageal varices with bleeding; E87.2 Acidosis; D68.4 Acquired coagulation factor deficiency; D62 Acute posthemorrhagic anemia; Z66 Do not resuscitate; Z96.651 Presence of right artificial knee joint; B19.20 Unspecified viral hepatitis C without hepatic coma; R57.1 Hypovolemic shock; E87.5 Hyperkalemia; F17.210 Nicotine dependence, cigarettes, uncomplicated; M19.90 Unspecified osteoarthritis, unspecified site; Z79.899 Other long term (current) drug therapy; Z79.1 Long term (current) use of non-steroidal anti-inflammatories (NSAID)
CPT/HCPCS: 36415; 36416; 36430; 71045; 71275; 72191; 74175; 80048; 80053; 80076; 80307; 81001; 82105; 82140; 82330; 82533; 82570; 82803; 82805; 83605; 83735; 84100; 84300; 84443; 84484; 85025; 85610; 85730; 86706; 86708; 86709; 86850; 86860; 86870; 86880; 86886; 86900; 86901; 86922; 87040; 87086; 87340; 87522; 93005; 94002; 94003; 94760; 96365; 96366; 96368; 96375; 96376; C9113; J0171; J0696; J1720; J2001; J2060; J2354; J2405; J2704; J3010; J3411; J3490; J7042; J7050; J7070; P9016; P9047; P9059; Q9966